=== PATIENT | male | born 1950 | race Caucasian/White ===

== ENCOUNTER 2021-12-16 14:35 | Outpatient (REF) | payer BC, SELFPAY ==
--- NOTE | ~2021-12-16 | CT_ITS ---
EXAMINATION: CT HEAD WITHOUT CONTRAST CLINICAL INFORMATION: Concussion with loss of consciousness COMPARISON: None TECHNIQUE: Contiguous axial imaging was performed from the skull base to vertex without intravenous administration of contrast. This CT examination was performed using dose optimization techniques as appropriate, variously including the following: *Automated exposure control *Adjustment of mA and/or kV according to patient size (this includes techniques or standardized protocols for targeted exams where dose is matched to indication/reason for exam; i.e. extremities or head) *Use of iterative reconstruction technique DLP: 775 mGy-cm FINDINGS: There is no evidence of acute intracranial hemorrhage or territorial infarction. No abnormal mass effect or midline shift is seen. Jalloh to white matter differentiation is well preserved. No extra-axial fluid collections are identified. The ventricles are normal in size. There is no abnormal attenuation within the brain parenchyma. The osseous structures and soft tissues are normal. The mastoid air cells and visualized portions of the paranasal sinuses are well aerated. CT/CT head/brain wo con IMPRESSION: Unremarkable exam.
== END 2021-12-16 14:36 | disposition home or self-care (01) ==
LOC: HO.CT 14:35
PROVIDERS: PCP Family Medicine; Visit Provider Psychiatry & Neurology Neurology
DX: S06.0X9A Concussion with loss of consciousness of unspecified duration, initial encounter (principal)
CPT/HCPCS: 70450

== ENCOUNTER 2025-01-14 09:53 | Outpatient (AMB) | payer BC, SELFPAY ==
--- OUTSIDE RECORDS SUMMARY | 2024-11-11 19:34 | XMS_ITS ---
Author Organization [facility] Address [facility] [place], [place] [id number] Care Team Providers Care Crusher Name Role Phone MARIAH OLGUIN Primary Care Provider [phone] REASON FOR VISIT RE:RE:Metoprolol Succinate short supply SOCIAL HISTORY Sex Assigned At : Social History Observation Description Sex Assigned At Male Encounters Encounter Location Date Provider Diagnosis [address] [address] 11/11/2024 MARIAH OLGUIN PLAN OF TREATMENT Next Appt Details Provider Name:NURSING NANETTE Wright, 06/24/2025 08:30:00 AM, [address] [place] [address], [phone], Provider Name:MARIAH REESE, 06/24/2025 09:00:00 AM, [address] [place] [address], [phone],
--- OUTSIDE RECORDS SUMMARY | 2024-11-12 04:40 | XMS_ITS ---
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 He is advised to call his systems software engineer immediately for follow-up. Continue present management. Follow-up [...] Assessment Notes Atherosclerotic heart diseas e of kaw coronary artery without angina pectoris Patient had some angina last week. He is advised to call his systems software engineer immediately for follow-up. Continue present management. Follow-up [...] Future Test Test Name Order Date AST (SGOT)-[id number] 05/12/2025 Vitamin [id number] 05/12/2025 ALT (SGPT)-[id number] 05/12/2025 Vitamin D, 02-Lbkllwr-401466 05/12/2025 Lipid Panel-428476 05/12/2025 BMP8+eGFR-036790 05/12/2025 Next Appt Details Follow Up: Follow-up in 6 mo nths already booked, Reason: Provider Name:MIGDALIA Wright, 06/24/2025 08:30:00 AM, [address] [place] [address], [phone], Provider Name:MARIAH REESE, 06/24/2025 09:00:00 AM, [address] [place] [address], [phone], Progress Notes * Examination Category Sub-Category Detail [...] he can self refer to orthopedics at [facility] but that if he wants to discuss this further he can book another visit.
--- OUTSIDE RECORDS SUMMARY | 2024-12-25 14:37 | XMS_ITS ---
Author Organization [facility] Address [facility] [place], [place] [address] Care Team Providers Care Physician Obstetrician Name Role Phone MARIAH OLGUIN Primary Care Provider [phone] REASON FOR VISIT MOLSTD Form SOCIAL HISTORY Sex Assigned At : Social History Observation Description Sex Assigned At Male Encounters Encounter Location Date Provider Diagnosis [address] [address] 12/25/2024 MARIAH OLGUIN PLAN OF TREATMENT Next Appt Details Provider Name:NURSING NANETTE Wright, 06/24/2025 08:30:00 AM, [address] [place] [address], [phone], Provider Name:MARIAH REESE, 06/24/2025 09:00:00 AM, [address] [place] [address], [phone],
--- OUTSIDE RECORDS SUMMARY | 2025-01-03 09:28 | XMS_ITS ---
Author Organization [facility] Address [facility] [place], [place] [address] Care Team Providers Care Wind Power Project Manager Name Role Phone MARIAH OLGUIN Primary Care Provider REASON FOR VISIT RE:MOLSTD Form SOCIAL HISTORY Sex Assigned At : Social History Observation Description Sex Assigned At Male Encounters Encounter Location Date Provider Diagnosis [address] [address] 01/03/2025 MARIAH OLGUIN PLAN OF TREATMENT Next Appt Details Provider Name:NURSING NANETTE Wright, 06/24/2025 08:30:00 AM, [address] [place] [address], [phone], Provider Name:MARIAH REESE, 06/24/2025 09:00:00 AM, [address] [place] [address], [phone],
--- OUTSIDE RECORDS SUMMARY | 2025-01-07 06:10 | XMS_ITS ---
Author Organization [facility] Address [facility] [place], [place] [address] Care Team Providers Care Land Management Forester Name Role Phone MARIAH OLGUIN Primary Care Provider REASON FOR VISIT RE:RE:MOLSTD Form SOCIAL HISTORY Sex Assigned At : Social History Observation Description Sex Assigned At Male Encounters Encounter Location Date Provider Diagnosis [address] [address] 01/07/2025 MARIAH OLGUIN PLAN OF TREATMENT Next Appt Details Provider Name:MIGDALIA Wright, 06/24/2025 08:30:00 AM, [address] [place] [address], [phone], Provider Name:MARIAH REESE, 06/24/2025 09:00:00 AM, [address] [place] [address], [phone],
--- NOTE | 2025-01-14 10:00 | A.OFFVIS_ITS ---
Intake Visit Reasons: 6m/ mci Accompanied by: Spouse Allergies No Known Allergies (No Known Allergies*) Allergy (Unverified 01/14/25 10:03) Medication List - Last Reconciled 01/14/25 by Pauline Morfin CNP memantine 10 mg PO BID 90 days metoprolol succinate ER 25 mg PO DAILY nitroglycerin 0.4 mg sublingual simvastatin 5 mg PO DAILY venlafaxine ER 37.5 mg PO DAILY vibegron (Gemtesa) 75 mg PO DAILY HPI Comments Details: He was doing okay. He was forgetful at times, misplacing things around the house, such as his glasses or phone, and it could take him some time to find them. He felt like he had trouble focusing and like his mind was always racing. He thought this may be related to memantine dose, but felt memory was worse when taking lower dose of medication. His noted that he often interrupted her when she was talking. Sleep was okay, getting 8+ hours/night. Mood was okay with venlafaxine. Headaches have been okay, worse in spring and fall with overcast weather. No falls. Was taking memantine 10mg once a day for period of time as medications got lost while traveling in [facility] and felt memory was worse without full dose, but did not notice much difference. Driving locally without any issues. He made some mistakes paying bills and was not responsible for paying as many as before. It takes him longer to do things. Mild forgetfulness, some word finding and name recall difficulties. Headaches usually occur with weather change and last 1-2 hours. Gets some headache daily for 15-20 minutes. They may be set off by riding on bumpy roads. Infrequency optical migraines with ripples 1/2 or full vision every 2 weeks or up to 2x/week. Before concussion, he had them every 2 months followed by a discomfort in the head for 4 hours. They started 20+ years ago. He has had some minor short-term memory problems before. Has been getting lot of headaches since then. 48 hours after the head trauma, he had CAT scan of the head and some other testing which were negative. He had occasional sharp needle and pins-like s ensation in soles of feet that come and go every few months and can happen 1- 2x/week for about 30-60 minutes. He also gets occasional tingling in his hands, but not consistently. Decreased flow in [facility] Medical History (Updated 01/14/25 @ 10:02 by Pauline Morfin CNP) MCI (mild cognitive impairment) Tension headache Migraine variant Paresthesia CAD (coronary artery disease) Review of Systems Const Denies chills, Denies daytime sleepiness, Denies difficulty sleeping, Denies fatigue, Denies fever(s), Denies frequent falls, Reports headache(s), Denies increased appetite, Denies poor appetite, Denies snoring, Denies weakness, Denies weight gain and Denies weight loss Eyes Denies loss of vision ENT Denies vertigo, Denies dizziness, Reports headache(s) and Denies neck pain Card Denies chest pain at rest, Denies chest pain with activity, Denies syncope, Denies leg edema, Denies palpitations, Denies dyspnea and Denies dyspnea on exertion Resp Denies cough, Denies dyspnea, Denies dyspnea on exertion and Denies snoring GI Denies abdominal pain, Denies constipation, Denies heartburn, Denies diarrhea and Denies nausea Reports urinary frequency, Denies urinary incontinence and Denies urinary urgency Musc Denies abnormal gait, Reports back pain, Denies myalgias, Denies arthralgias, Denies neck pain, Reports numbness and Reports tingling Neuro Denies abnormal gait, Denies vertigo, Denies dizziness, Denies syncope, Denies frequent falls, Reports headache(s), Denies lack of coordination, Denies loss of vision, Reports memory loss, Reports numbness, Denies Other visual disturbances, Denies restless legs, Denies seizure-like activity, Reports tingling, Denies paresthesias, Denies tremor(s) and Denies weakness Psych Reports anxiety, Denies depression, Denies auditory hallucinations, Reports memory loss and Denies visual hallucinations Endo Denies fatigue and Denies palpitations Physical Exam Const Other: General Appearance:? normal, in no acute distress. Heart:? S1, S2 normal, no murmurs. Lungs:? clear anteriorly and posteriorly. Musculoskeletal:? normal. Extremities:? no edema. Psych:? alert, as below. Neuro Other: Abnormal Neurological Findings:?MMSE 30/30. Mental Status: alert and oriented X 3. Normal attention, orientation, memory, and affect. Cranial Nerves: Pupils are equal, round, and reactive to light. External ocular muscles are intact. Visual roy are full, no ptosis. Face is symmetrical, no facial weakness or droop. Facial sensations are normal. Tongue protrudes in midline. Palate elevates symmetrically. Shoulder shrugging is normal Motor Examination: Normal muscle tone, bulk and strength. No atrophy or fasciculations. No drift of the extended upper extremities. DTR 2+. Plantars are flexor. Sensory Exam: Normal light touch, temperature, pinprick, vibration, and joint- position sensations. Rhomberg sign is absent. Coordination: No ataxia. No titubation. Gait Exam: Within normal limits. Cerebellar Signs: Ruqkae-oc-oruf is okay. Extrapyramidal System: No tremor, rigidity with normal facial expressions. No bradykinesia. No bradyphrenia. Normal arm swing and posture. No propulsion or retropulsion. Speech: Normal. MMSE Level of Consciousness: Alert. Orientation: Knows correct year, month, date, day and season. Knows correct city, county and state. Knows correct location and floor. Registration: Able to register 3 objects. Attention: Serial 7's performed accurately to 65. Recall: Able to recall 3 out of 3 objects. Language: Normal spontaneous speech, fluency, repetition, naming, comprehension, reading, and writing. Total Score: 30/30. Results Reviewed Results Reviewed: 09/18/21 NCV/ EMG at [facility] showed normal NCV . EMG showed mild chronic radiculopathy L2-4 muscles 10/27/21 EEG- WNL 12/16/21 CT brain normal. Assessment & Plan Assessment & Plan (1) MCI (mild cognitive impairment): Code(s): G31.84 - Mild cognitive impairment of uncertain or unknown etiology Category: Medical Plan: He was here with his . He reported difficulty focusing and feeling like his mind was racing, which he thought may be related to memantine dose of 20mg/day, however he felt memory declined when he reduced dose to 10mg/day earlier this year. * May try memantine 10mg 1 tablet in the morning and 1/2 tablet in the evening (for total of 15mg/day) He was asking if there were new/other treatment options available. He tried donepezil in the past with side effects. He was educated on new IV anti-amyloid treatment (Kisunla) for early, symptomatic AD, which he was interested in. He was advised of additional testing that would be required to determine if he would be appropriate candidate for this treatment, and he was agreeable. * Cognitive testing (MMSE, MoCA) * Labs ordered (TSH, vitamin B12 and folate) * MRI brain ordered * PET brain beta amyloid ordered (2) Migraine variant: Code(s): G43.809 - Other migraine, not intractable, without status migrainosus Category: Medical (3) Tension headache: Code(s): G44.209 - Tension-type headache, unspecified, not intractable Category: Medical Plan Meds tried: donepezil (side effects) Orders: Orders Vitamin B12 and Folate Today G31.84 - Mild cognitive impairment of uncertain or unknown etiology PET Brain beta amyloid Today G31.84 - Mild cognitive impairment of uncertain or unknown etiology MR head/brain wo con Today G31.84 - Mild cognitive impairment of uncertain or unknown etiology TSH reflex Free T4 Today G31.84 - Mild cognitive impairment of uncertain or unknown etiology Coding Level of Care Code Est Pt Level 4 (95955) Diagnoses MCI (mild cognitive impairment) G31.84 Migraine variant G43.809 Tension headache G44.209
--- OUTSIDE RECORDS SUMMARY | 2025-01-14 11:55 | XMS_ITS | Clinical Summary ---
Author Organization [facility] Address [address] [place] [address] Phone Care Team Providers Care Migration Specialist Name Role Phone Julia Levin MD Primary Care Provider [phone] Social History Tobacco Use Types Packs/Day Years Used Date Smoking Tobacco: Never Assessed Education Answer Date Recorded Are you interested in more education? Not on heron e 09/01/2022 Are you concerned about learning? Not on file 09/01/2022 No 09/01/2022 No 09/01/2022 Digital Access Answer Date Recorded No 10/03/2022 No 10/03/2022 Reliable internet access at home? Not on file 10/03/2022 Device with a working camera? Not on file Sex and Gender Information Value Date Recorded Sex Assigned at Not on file Legal Sex Male 9:39 AM EST Gender Identity Not on file Sexual Orientation Not on file Plan of Treatment Not on file Medical Devices Not on file Insurance [employer] PPO BLUE REPLACEMENT [facility] MEDICARE PPO BLUE [place] [address] [place] [address] MEDICARE PPO BLUE REPLACEMENT Care Teams Migration Specialist Relationship Specialty Start Date End Date Julia Levin MD [address] [place] [id number] PCP - General Family Medicine 03/25/20 Additional Source Comments The information contained in this document represents components of the legal health record. It is not the complete legal health record.[facility]
--- OUTSIDE RECORDS SUMMARY | 2025-01-14 11:55 | XMS_ITS | Clinical Summary ---
Author Organization [facility] [employer] [facility] Address [address] [place] [address] Care Team Providers Care Hand Suture Winder Name Role Phone Unavailable Primary Care Provider Unavailabl e Allergies No known active allergies Medications metoprolol (TOPROL-XL) 25 MG 24 hr tablet TAKE 1 TABLET BY MOUTH EVERY DAY 11/13/2020 Active oxybutynin (DITROPAN-XL) 10 MG 24 hr tablet TAKE 1 TABLET BY MOUTH EVERY DAY 10/19/2020 Active simvastatin (ZOCOR) 5 MG tablet TAKE 1 TABLET BY MOUTH EVERY DAY 09/14/2020 Active Active Problems No known active problems Social History Tobacco Use Types Packs/Day Years Used Date Smoking Tobacco: Never Smokeless Tobacco: Never Alcohol Use Standard Drinks/Week Comments Yes 0 (1 standard drink = 0.6 oz pur e alcohol) Sex and Gender Information Value Date Recorded Sex Assigned at Not on file Legal Sex Male 12:37 PM EDT Gender Identity Not on file Sexual Orientation Not on file Last Filed Vital Signs Vital Sign Reading Time Taken Comments Blood Pressure - - Pulse 82 12/01/2020 1:12 PM EDT Temperature 36.8 C (98.2 F) 12/01/2020 1:12 PM EDT Respiratory Rate - - Oxygen Saturation 98% 12/01/2020 1:12 PM EDT Inhaled Oxygen Concentration - - Weight - - Height - - Body Mass Index - - Plan of Treatment Health Maintenance Due Date Last Done Comments Colorectal Cancer: COLONOSCO PY Screening every 10 yrs (or Modifier) 1949 Depression: Screening Annual ly using PHQ-2/9 in Adults 18 yrs or above (or HM Modifier)([facility]) 10/21/1967 Hepatitis C Virus Infection in Adolescents and Adults: Screening (or Modifier) ([facility]) 10/21/1967 SDOH Screening Reminder: Jessica lyles for all adults ([facility]) 10/21/1967 Tobacco Smoking Cessation: i n Adults excluding Women: Behavioral and Pharmacotherapy Interventions ([facility]) 10/21/1967 DTaP/Tdap/Td Vaccines ([facility]) (1 - Tdap) 1968 Colorectal Cancer Screening 45 -75 Yrs (or HM Modifier ) 1994 Colorectal Cancer: FLEXIBLE SIGMOIDOSCOPY Screening every 5 yrs 1994 Colorectal Cancer: Fecal Imm unochemical Test (FIT) Annually [facility] 1994 Colorectal Cancer: High-sens itivity gFOBT Screening Annually [facility] 1994 Colorectal Cancer: Stool Col oguard Screening every 3 yrs 1994 Colorectal Cancer:CT Colonography Screening every 5 yr s 1994 Pneumococcal Vaccination Scr eening: Patients 50+ yrs of age ([facility]) (1 of 1 - PCV) 10/21/1999 Zoster/Shingles Vaccine Seri es Screening: Adults aged 18+ yrs (or HM Modifiers)([facility]) (1 of 2) 10/21/1999 COVID-19 Vaccine Screening: Initial Series and Booster Status ([facility]) ( - 2023-25 season) 2024 RSV Vaccines (1 - 1-dose 75+ series) 2024 Flu Vaccination: Ages 65+: Y early High Dose Recommended (or Modifier)([facility]) 12/05/2024 Medical Devices Not on file [place] [address] [place] [address] MEDICARE Member Subscriber Plan / Payer (Ef fective 2020-Present) Name:Justin Thakkar Relation to Subscriber:Self Name:Justin Thakkar Payer ID:Not on file Group ID:[facility] [address] [id number] Type:Not on file Address: [facility] [id number] [place] [address]
--- OUTSIDE RECORDS SUMMARY | 2025-01-14 11:55 | XMS_ITS | Patient Health Record ---
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 Name Role Phone MARIAH OLGUIN Primary Care Provider ALLERGIES No Known Allergies RESULTS Component Value Reference Range Notes BMP8+eGFR-[id number] Reviewed date:05/16/2024 12:03:45 PM Interpretation: Performing Lab:[facility], [facility], Phone - [phone], Director - Emily Notes/Report: Glucose 66 70-99 mg/dL BUN 17 8-27 mg/dL Creatinine 0.88 0.76-1.27 mg/dL eGFR 90 >59 mL/min/1.73 BUN/Creatinine Ratio 19 10-24 Sodium 140 134-144 mmol/L Potassium 5.0 3.5-5.2 mmol/L Chloride 101 96-106 mmol/L Carbon Dioxide, Total 25 20-29 mmol/L Anion Gap 14.0 10.0-18.0 mmol/L Calcium 9.5 8.6-10.2 mg/dL LDL Cholesterol (Direct)-120 295 Reviewed date:05/16/2024 12:12:47 PM Interpretation: Performing Lab:[facility], [facility], Phone - [phone], Director - Emily Notes/Report: LDL Chol. (Direct) 79 0-99 mg/dL LDL Direct Comment: AST (SGOT)-[id number] Reviewed date:05/16/2024 12:03:27 PM Interpretation: Performing Lab:[facility]assandra, [facility], Phone - [phone], Director - [facility] Notes/Report: AST (SGOT) 30 0-40 IU/L ALT (SGPT)-[id number] Reviewed date:05/16/2024 12:03:16 PM Interpretation: Performing Lab:[facility], [address] [place] [address], Phone - [phone], [facility] Notes/Report: ALT (SGPT) 22 0-44 IU/L Tick-borne Disease Ab Profil e-[id number] Reviewed date:10/11/2024 10:57:03 PM Interpretation: Performing Lab:[facility], [address] [place] [address], Phone - [phone], Director - [facility] Notes/Report: and Drug Administration. by [email or web address]. It has not been cleared or approved by the Food was developed and its performance characteristics determined Test(s) 341730-Qhqmiqo microti IgG Lyme Total Antibody ELTON Negative Negative Lyme antibodies not detected. Reflex testing is not indicated. No laboratory evidence of infection with B. burgdorferi (Lyme disease). Negative results may occur in patients recently infected (less than or equal to 14 days) with B. burgdorferi. If recent infection is suspected, repeat testing on a new sample collected in 7 to 14 days is recommended. Babesia microti IgG <1:10 Neg:<1:10 E. chaffeensis IgG Negative Neg:<1:64 A. phagocytophilum IgG Negative Neg:<1:64 Result Comments: Antibody titers may be negative in the first 7-10 days of illness. A four-fold rise in IgG antibody titers for Babesia microti, Anaplasma phagocytophilum, and/or Ehrlichia chaffeensis in paired samples (acute and convalescent) supports the diagnosis of babesiosis, anaplasmosis, and/or ehrlichiosis, respectively. Lipid Panel-[id number] Reviewed date:05/16/2024 12:04:17 PM Interpretation: Performing Lab:[facility], [address] [place] [address], Phone - [phone], [facility] Notes/Report: Cholesterol, Total 165 100-199 mg/dL Triglycerides 328 0-149 mg/dL HDL Cholesterol 54 >39 mg/dL VLDL Cholesterol Rick 51 5-40 mg/dL LDL Chol Calc ([facility]) 60 0-99 mg/dL LDL Calc Comment: Vitamin D, 85-Cimqklx-[id number] Reviewed date:05/16/2024 12:04:38 PM Interpretation: Performing Lab:[facility]andra, [address], [place], Phone - [phone], Director - Emily Notes/Report: Vitamin D, 25-Hydroxy 31.8 30.0-100.0 ng/mL Vitamin D deficiency has been defined by the [place] of Medicine and an Endocrine Society practice guideline as a level of serum 25-OH vitamin D less than 20 ng/mL (1,2). The Endocrine Society went on to further define vitamin D insufficiency as a level between 21 and 29 ng/mL (2). 1. IOM ([place] of Medicine). 2010. Dietary reference intakes for calcium and D. [place]: The National Academies Press. 2. Mauro MF, Daniel KATZ, Tanmay BOYKIN, et al. Evaluation, treatment, and prevention of vitamin D deficiency: an Endocrine Society clinical practice guideline. JCEM. 2010; 96(7):1911-30. REASON FOR REFERRAL No Information MEDICATIONS Medication SIG (Take, Route, Frequency, Duration) Notes Start Date End Date Status Multivitamin - 1 tab(s) orally once a day Active Venlafaxine HCl ER 37.5 MG TAKE 1 CAPSUL E BY MOUTH DAILY for 90 Active Aspirin 81 81 MG 1 tablet Orally Once a day for 30 day(s) Active Nitroglycerin 0.4 MG as directed Sublingual Active Advil 200 MG 1 tablet with food o r milk as needed Orally Three times a day Active Metoprolol Succinate ER 25 MG TAKE 1 TABLET BY MOUTH EVERY DAY for 5 days Active Simvastatin 5 MG 1 tab(s) orally once a day (at bedtime) Active B-12 1000 MCG 1 tab(s) orally once a day Active Fish Oil 1000 MG 1 capsule Orally ana ry other day occ Active Memantine HCl 10 MG 1 tab Orally Twice a day Active Vitamin E 200 UNIT 1 cap(s) orally once a day Active IMMUNIZATIONS Vaccine Route Administration Date Status Comme nts FLU- FLUVIRIN, PRE-FILLED SYRINGE 0.5 ml Unknown 01/23/2013 Administered FLU- FLUVIRIN, PRE-FILLED SYRINGE 0.5 ml Unknown 01/07/2014 Administered Influenza IM Intramuscular 03/11/2009 Administered Influenza IM Intramuscular 04/21/2010 Administered Influenza Unknown 01/05/2011 Administered Influenza Unknown 02/06/2012 Administered Influenza Unknown 01/05/2015 Administered Influenza Vaccine[158] Unknown 02/18/2019 Administered Influenza, Fluzone HD 65+ Unknown 01/30/2017 Administer ed Influenza, Fluzone HD 65+ IM Intramuscular 02/04/2018 Admi nistered Influenza, Fluzone HD 65+ IM Intramuscular 01/24/2020 Admi nistered Influenza, Fluzone HD 65+ IM Intramuscular 12/31/2020 Admi nistered Influenza, Fluzone HD 65+ IM Intramuscular 02/09/2022 Admi nistered Influenza, Fluzone HD 65+ IM Intramuscular 01/19/2023 Admi nistered Influenza, Fluzone HD 65+ IM Intramuscular 02/19/2024 Admi nistered Moderna Bivalent Unknown 02/08/2022 Administered Moderna COVID-19 mRNA LNP-S PF Unknown 08/08/2021 Administered Moderna COVID-19 mRNA LNP-S PF IM Intramuscular 02/09/2023 Administered Moderna COVID-19 mRNA LNP-S PF IM Intramuscular 02/19/2024 Administered Pfizer COVID-19,mRNA, LNP-S, PF, 30mcg/0.3mL dose Unknown 07/20/2020 Administered Pfizer COVID-19,mRNA, LNP-S, PF, 30mcg/0.3mL dose Unknown 08/11/2020 Administered Pfizer COVID-19,mRNA, LNP-S, PF, 30mcg/0.3mL dose IM Intramuscular 02/21/2021 Administered Pneumococcal (PPV23, adult) IM Intramuscular 04/05/2012 Administered Pneumococcal, PPV 23 IM Intramuscular 12/18/2017 Administe red Pneumococcal,Prevnar 13, PEDS STATE SUPPLIED Unknown 01/04/2015 Administered ZejyepXFS62 IM Intramuscular 05/10/2023 Administered RSV,recombinant,protein subunit,RSVpreF, adjuvant IM Intramuscular 01/19/2023 Administered SHINGRIX HZV VACCINE Unknown 12/18/2017 Administered SHINGRIX HZV VACCINE Unknown 12/28/2018 Administered Tdap (Adacel) Unknown 04/14/2008 Pending Tdap (Adacel) Unknown 12/18/2017 Administered Tdap (Adacel)11-64,State Supplied Unknown 04/14/2008 Administered Zostavax (Shingles) SC Subcutaneous 06/19/2012 Administere d Influenza, Fluzone, High-Dose, 65+ Unknown 01/25/2016 Administered PREVNAR 13, STATE SUPPLIED Unknown 01/05/2015 Administe red SOCIAL HISTORY Tobacco Use: Social History Observation [...] 4 Interpretation Positive Section Notes: never smoked never smoked never smoked never smoked never smoked never smoked never smoked Working 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 never smoked never smoked never smoked never smoked never smoked never smoked never smoked never smoked never smoked Working 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 never smoked never smoked never smoked Working 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 never smoked never smoked never smoked never smoked never smoked never smoked Working 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) Active confirmed Atheroscle rotic heart disease of [place] coronary artery without angina pectoris (296781052190767 ) Problem Functional dyspepsia (K30) Active confirmed Functional dyspepsia (6997916) Problem Macrocytosis (D75.89) Active confirmed 983498082 Problem Family history of GI malignancy (Z80.0) Active confirmed 096689902 Problem Low vitamin D level (E55.9) Active confirmed Vitamin D deficiency (95216646) Problem Postconcussive syndrome (F07.81) Active confirmed 74114454 Problem Enlarged prostate wi th lower urinary tract symptoms (LUTS) (N40.1) Active confirmed 271166276 Problem Memory problem (R41.3) Active confirmed 648602900 Problem Pure hypercholesterolemia (E78.00) Active confirmed 422720097 Problem Hearing loss, unspecified hearing loss type, unspecified laterality (H91.90) Active confirmed 55770359 Problem Hearing loss of left ear, unspecified hearing loss type (H91.92) Active confirmed 292232486 VITAL SIGNS Blood pressure diastolic 62 mm Hg 11/12/2024 Height 70 in 11/12/2024 Blood pressure systolic 124 mm Hg 11/12/2024 Weight 162 lbs 11/12/2024 BMI 23.24 kg/m2 11/12/2024 Encounters Encounter Location Date Provider Diagnosis [address] [address] 03/18/2024 MARIAH [place] [id number] 03/20/2024 MARIAH OLGUIN [place] [id number] 04/22/2024 MARIAH OLGUIN [place] [id number] 04/22/2024 MARIAH OLGUIN [place] [id number] 04/23/2024 MARIAH [place] [id number] 04/23/2024 [place] [id number] 04/24/2024 MARIAH OLGUIN [place] [id number] 05/13/2024 MARIAH OLGUIN [address] [address] 05/15/2024 MARIAH OLGUIN Medicare annual well ness visit, subsequent Z00.[address] [address] 05/15/2024 MARIAH OLGUIN Major depressive dis order, single episode, unspecified F32.9 ; Pure hypercholesterolemia E78.00 ; Postconcussive syndrome F07.81 and Impacted cerumen, left ear H61.[address] [address] 09/30/2024 MARIAH OLGUIN Insect bite (nonveno mous) of abdominal wall, initial encounter S30.861A and Bitten or stung by nonvenomous insect and other nonvenomous arthropods, initial encounter W57.XXXA [place] [address] 10/02/[address] 11/05/2024 [place] [address] 11/05/2024 [place] [address] 11/06/2024 [place] [address] 11/11/2024 [place] [address] 11/12/2024 [facility] Atherosclerotic hear t disease of [place] coronary artery without angina pectoris I25.10 ; Major depressive disorder, single episode, unspecified F32.9 ; Pure hypercholesterolemia E78.00 ; Postconcussive syndrome F07.81 ; Low vitamin D level E55.9 and Medication management Z79.899 [place] [address] 12/25/2024 [place] [address] 01/03/2025 [place] [address] 01/07/2025 [facility] ASSESSMENTS Encounter Date Diagnosis Assessment Notes Treatment Notes Treatment Clinical Notes Section Notes 09/30/2024 Insect bite (nonvenomous) of abdominal wall, initial encounter (ICD-10 - S30.861A) 11/12/2024 Atherosclerotic hear t disease of [place] coronary artery without angina pectoris (ICD-10 - I25.10) Patient had some angina last week. 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 Continue present management. Follow-up with cardiology and with us in 6 months. 11/12/2024 Major depressive disorder, single episode, unspecified (ICD-10 - F32.9) Clinically stable and not suicidal. Continue present management. Follow-up in 6 months. 05/15/2024 Medicare annual wellness visit, subsequent (ICD-10 - Z00.00) 05/15/2024 Pure hypercholesterolemia (ICD-10 - E78.00) Patient will have his blood work drawn on the way out. We will follow-up on the results and modify management if required. Next follow-up 1 year. 05/15/2024 Major depressive disorder, single episode, unspecified (ICD-10 - F32.9) Controlled. Continue present management. Follow-up in 6 months. 09/30/2024 Bitten or stung by nonvenomous insect and other nonvenomous arthropods, initial encounter (ICD-10 - W57.XXXA) 11/12/2024 Pure hypercholesterolemia (ICD-10 - E78.00) Previously controlled. Continue present management pending blood work in 6 months. 05/15/2024 Postconcussive syndr ome (ICD-10 - F07.81) Patient has continued fatigue and short-term memory problems. Patient is advised to follow-up with his neurologist about this. He requests neuro psych testing for his memory problems and is given the names of Dr. Awan and Dr. Carlitos Meneses with phone numbers to call and see if they take his insurance if so he can book himself an appointment otherwise he should speak to Dr. Foley about having him do the testing. 11/12/2024 Postconcussive syndr ome (ICD-10 - F07.81) Frontal headaches. Likely part of postconcussive syndrome followed by neurology. Also advised to try treatment for his allergies and continue to wear sunglasses on hasty days to avoid eyestrain. Patient to follow-up with neurology if not improving. 05/15/2024 Impacted cerumen, le ft ear (ICD-10 - H61.22) Patient advised to do wax softening drops for 10 minutes for 3 or 4 days before trying to irrigate his ear again. If this does not allow him to remove the wax he should continue to do the wax softening drops daily and make an appointment in nursing to have his ear flushed. 11/12/2024 Low vitamin D level (ICD-10 - E55.9) 11/12/2024 Medication managemen t (ICD-10 - Z79.899) 05/15/2024 Other Well male adult physical. Up to date on aprropriate screenings. Follow up in 1 year for next physical. Colonoscopy booked October 15. PLAN OF TREATMENT Pending Test Test Name Order Date AST ( SGOT) 04/05/2021 ALT(DO NOT USE) 04/05/2021 ALT (SGPT) 05/04/2022 Future Test Test Name Order Date Lyme ,EIA w/i Ref IgG, IgM(Quest/BRL) Bone density (Three site Dexa) 0 XR : SPINE CERVICAL min 4 views -SMA 03/2020 AST (SGOT)-[id number] 05/12/2025 Vitamin V84-119127 05/12/2025 ALT (SGPT)-894750 05/12/2025 Vitamin D, 46-Iygiove-257465 05/12/2025 Lipid Panel-823409 05/12/2025 BMP8+eGFR-[id number] 05/12/2025 Next Appt Details Provider Name:MIGDALIA Wright, 06/24/2025 08:30:00 AM, [address] [place] [address], [phone], Provider Name:MARIAH REESE, 06/24/2025 09:00:00 AM, [address] [place] [address], [phone], Insurance Providers Payer Name Payer Address Payer Phone Subscriber Number Group Number Insured Name Patient Relationship to Insured Coverage Start Date Coverage End Date [employer]IC[employer] [address] [place] [address] [phone] [id number] RONY DE PAZ Self - patient is the insured 5 [employer] [facility] [address] [place] [address] [phone] [id number] RONY DE PAZ Self - patient is the insured MEDICAL (GENERAL) HISTORY Medical History History ICD Code Anemia-Hgb12.7,MCV86,%ironsa t18-05/14-Iron def///Father colon polyps/Cancer--,PA----pnuevktg62(05/14)//TTG nl 07/12/Hgb3/nl////EGD4/25/12 SBBX nl(SIBx-nl,,COlon 08/26/07-mod sigm tics-Iron def anemia unclear etiology- REc path=Nl Duod, RTo4 mo c Hgb 1 week before,IRon,VitC colon 2012 with diverticulosis//Colon04/23/18-TIcs right and left-Rec fiber,Myqmc6pnmJknz R shoulder tendonitis Elevated ALT/AST depression/anxiety dyspepsia -resolved when stopped fish oi l Arthritis Hypoglycemia Palpitations FH colon cancer in father- in 80's Pt has been under moderate stress recent ly CAD, s/p CABG x2- 03/2012 Dr. Daley-Derm, Dr. Brooks-Cardio, Dr. Henderson olrimma-Eye Chronic anemia inguinal hernia (see surgical hx) covid HCP- Adriana Chawla () Surgical History Surgery Date(Month/Year) Cardiac Cath 03/14/2012 inguinal hernia repair 12/19/19 wisdom teeth removal as a teen cataract surgery 02/18/2018 Double Coronary Bypass 03/15/2012 Hospitalization History Reason Date(Month/Year) [facility] ED- concussion 06/09/21 [facility] Dx; abnormal stress test double john nary bypass 03/14/2012 - 03/21/2012
--- OUTSIDE RECORDS SUMMARY | 2025-01-14 11:55 | XMS_ITS ---
Author Name [facility] Organization Unknown Encounters Encounter Type Encounter Reason Primary Diagnosis Location Date Ambulatory [facility] 01/04/20 23 Ambulatory [facility] 12/28/19 23 Ambulatory [facility] 12/21/19 23 Ambulatory [facility] 12/19/19 23 Ambulatory [facility] 12/14/19 23 Ambulatory [facility] 12/12/19 Care Team Organization Name Specialty Phone Email Start Date End Da [facility] 06/06/2023 [facility] 12/11/2022 11/18/2024 [facility] 10/06/2022 [facility] Primary Care
--- OUTSIDE RECORDS SUMMARY | 2025-01-14 11:55 | XMS_ITS | Clinical Summary ---
Author Organization [facility] Address [address] [place] [address] Care Team Providers Care Arts Manager Name Role Phone Unavailable Primary Care Provider Unavailabl e Social History Tobacco Use Types Packs/Day Years Used Date Smoking Tobacco: Never Assessed Sex and Gender Information Value Date Recorded Sex Assigned at Not on file Gender Identity Not on file Sexual Orientation Not on file Job Start Date Occupation Industry Not on file Not on file Not on file Plan of Treatment Health Maintenance Due Date Last Done Comments Hepatitis C Screening 1949 Depression Screening 1961 Preventative Health Evaluation 10/21/1967 DTap / Tdap / Td (1 - Tdap) 1968 Colon Cancer Screening (Colonoscopy) 1994 Shingrix-Zoster Vaccine (1 o f 2) 10/21/1999 Fall Risk Assessment 2014 Pneumococcal Vaccine (1 of 1 - PCV) 2014 RSV Adult > 60+ Yrs or (1 - 1-dose 75+ series) 2024 COVID-19 Vaccine (2 - 2024-2 6 season) 2025 02/21/2021 Influenza Vaccine (#1) 2025 2, 12/31/2020, 01/24/2020 Hepatitis B Vaccines Aged Out No long er eligible based on patient's age to complete this topic RSV Ped < 20 months Aged Out No longe r eligible based on patient's age to complete this topic DR RODRIGUEZ, KAREL [phone]
== END 2025-01-14 10:44 | disposition home or self-care (01) ==
LOC: HO.HSM 09:54
PROVIDERS: PCP Family Medicine; Referring Provider Family Medicine; Visit Provider Registered Nurse
DX: G31.84 Mild cognitive impairment of uncertain or unknown etiology (principal); G43.809 Other migraine, not intractable, without status migrainosus; G44.209 Tension-type headache, unspecified, not intractable
CPT/HCPCS: 99214

== ENCOUNTER 2025-01-20 08:29 | Outpatient (REF) | payer MEDICARE, SELFPAY ==
--- OUTSIDE RECORDS SUMMARY | 2024-11-11 19:34 | XMS_ITS ---
Author Organization [facility] Address [facility] [place], [place] [id number] Care Team Providers Care Rv Detailer Name Role Phone MARIAH OLGUIN Primary Care Provider REASON FOR VISIT RE:RE:Metoprolol Succinate short supply SOCIAL HISTORY Sex Assigned At : Social History Observation Description Sex Assigned At Male Encounters Encounter Location Date Provider Diagnosis [address] [address] 11/11/2024 MARIAH OLGUIN PLAN OF TREATMENT Next Appt Details Provider Name:NURSING NANETTE Wright, 06/24/2025 08:30:00 AM, [address] [place] [address], [phone], Provider Name:MARIAH RESEE, 06/24/2025 09:00:00 AM, [address] [place] [address], [phone],
--- OUTSIDE RECORDS SUMMARY | 2024-11-12 04:40 | XMS_ITS ---
Author Organization [facility] Address [facility] [place], [place] [address] Care Team Providers Care College Scouting Coordinator Name Role Phone MARIAH OLGUIN Primary Care Provider [phone] REASON FOR VISIT 6 month f/u MEDICATIONS Medication SIG (Take, Route, Frequency, Duration) Notes Start Date End Date Status Venlafaxine HCl ER 37.5 MG TAKE 1 CAPSUL E BY MOUTH DAILY for 90 Active Multivitamin - 1 tab(s) orally once a day Active Simvastatin 5 MG 1 tab(s) orally once a day (at bedtime) Active B-12 1000 MCG 1 tab(s) orally once a day Active Vitamin E 200 UNIT 1 cap(s) orally once a day Active Aspirin 81 81 MG 1 tablet Orally Once a day for 30 day(s) Active Nitroglycerin 0.4 MG as directed Sublingual Active Fish Oil 1000 MG 1 capsule Orally ana ry other day occ Active Memantine HCl 10 MG 1 tab Orally Twice a day Active Advil 200 MG 1 tablet with food o r milk as needed Orally Three times a day Active Metoprolol Succinate ER 25 MG TAKE 1 TABLET BY MOUTH EVERY DAY for 5 days Active SOCIAL HISTORY Tobacco Use: Social History Observation Description Date Details (start date - stop date) Never Smoker NA - NA Sex Assigned At : Social History Observation Description Sex Assigned At Male Smoking Question Answer Notes Are you a: never smoker Alcohol Screen Question Answer Notes Did you have a drink contain ing alcohol in the past year? Yes How often did you have a dri nk containing alcohol in the past year? 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 He is advised to call his house wirer helper immediately for follow-up. Continue present management. Follow-up with cardiology and with us in 6 months. 11/12/2024 Major depressive disorder, single episode, unspecified (ICD-10 - F32.9) Clinically stable and not suicidal. Continue present management. Follow-up in 6 months. 11/12/2024 Pure hypercholesterolemia (ICD-10 - E78.00) Previously controlled. Continue present management pending blood work in 6 months. 11/12/2024 Postconcussive syndr ome (ICD-10 - F07.81) Frontal headaches. Likely part of postconcussive syndrome followed by neurology. Also advised to try treatment for his allergies and continue to wear sunglasses on hasty days to avoid eyestrain. Patient to follow-up with neurology if not improving. 11/12/2024 Low vitamin D level (ICD-10 - E55.9) 11/12/2024 Medication managemen t (ICD-10 - Z79.899) PLAN OF TREATMENT Treatment Notes Assessment Notes Atherosclerotic heart diseas e of [place] coronary artery without angina pectoris Patient had some angina last week. He is advised to call his house wirer helper immediately for follow-up. Continue present management. Follow-up with cardiology and with us in 6 months. Major depressive disorder, s walter episode, unspecified Clinically stable and not suicidal. Continue present management. Follow-up in 6 months. Pure hypercholesterolemia Previously con trolled. Continue present management pending blood work in 6 months. Postconcussive syndrome Frontal headache s. Likely part of postconcussive syndrome followed by neurology. Also advised to try treatment for his allergies and continue to wear sunglasses on hasty days to avoid eyestrain. Patient to follow-up with neurology if not improving. Future Test Test Name Order Date AST (SGOT)-[id number] 05/12/2025 Vitamin [id number] 05/12/2025 ALT (SGPT)-[id number] 05/12/2025 Vitamin D, 50-Uqrsole-899166 05/12/2025 Lipid Panel-801340 05/12/2025 BMP8+eGFR-729488 05/12/2025 Next Appt Details Follow Up: Follow-up in 6 mo nths already booked, Reason: Provider Name:MIGDALIA Wrgiht, 06/24/2025 08:30:00 AM, [address] [place] [address], [phone], Provider Name:MARIAH REESE, 06/24/2025 09:00:00 AM, [address] [place] [address], [phone], Progress Notes * Examination Category Sub-Category Detail Notes Category Not es General Examination Heart: RSR, normal S1S2 Lungs: clear to auscultatio n General Appearance no apparent distress , pleasant Neuro alert and oriented x 3, gait normal History and Physical Notes * HPI (History of Present Illness) Category Sub-Category Detail Notes Category Not es General Patient presents in follow-up. Dr Foley has retired Pt is seeing a APC at his practice instead.Doing well on memantine with no side effects. Patient was having some problematic headaches he saw his neurologist about it and he advised him to see his eye doctor but also said that he would likely have headaches from the concussion for the rest of his life. Pt had his glasses updated and this helped a bit. Pt also gets more head aches when there is white overcast. wears sun glasses when this is happening and has less problems. persistent cough is improved when takes allergy med consitently Had some central chest pain last week when doing heavy lifting in the heat. no SOB or nausea, but was fatigued. went away with rest. sees Dr Brooks and is advised to speak to him about it. Patient has had previous similar and Dr. Brooks did not necessarily do anything about it. Patient would also like to do a DNR. We do not have the time to discuss it at this visit but patient is given the MOLST form instead and advised to fill this out indicating that he does not want CPR but to look at the other items enumerated and see how he feels about those. He can book another appointment to discuss this. Patient also has issues with some joint aches that he brings out as an exit comment. Patient is advised that he can self refer to orthopedics at [facility] but that if he wants to discuss this further he can book another visit.
--- OUTSIDE RECORDS SUMMARY | 2024-12-25 14:37 | XMS_ITS ---
Author Organization [facility] Address [facility] [place], [place] [id number] Care Team Providers Care Perforator Typist Name Role Phone MARIAH OLGUIN Primary Care Provider [phone] REASON FOR VISIT MOLSTD Form SOCIAL HISTORY Sex Assigned At : Social History Observation Description Sex Assigned At Male Encounters Encounter Location Date Provider Diagnosis [address] [address] 12/25/2024 MARIAH OLGUIN PLAN OF TREATMENT Next Appt Details Provider Name:NURSING NANETTE Wright, 06/24/2025 08:30:00 AM, [address] [place] [address], [phone], Provider Name:MARIAH REESE, 06/24/2025 09:00:00 AM, [address] [place] [address], [phone],
--- OUTSIDE RECORDS SUMMARY | 2025-01-03 09:28 | XMS_ITS ---
Author Organization [facility] Address [facility] [place], [place] [address] Care Team Providers Care Information Operator Name Role Phone MARIAH OLGUIN Primary Care Provider [phone] REASON FOR VISIT RE:MOLSTD Form SOCIAL HISTORY Sex Assigned At : Social History Observation Description Sex Assigned At Male Encounters Encounter Location Date Provider Diagnosis [address] [address] 01/03/2025 MARIAH OLGUIN PLAN OF TREATMENT Next Appt Details Provider Name:NURSING NANETTE Wright, 06/24/2025 08:30:00 AM, [address] [place] [address], [phone], Provider Name:MARIAH REESE, 06/24/2025 09:00:00 AM, [address] [place] [address], [phone],
--- OUTSIDE RECORDS SUMMARY | 2025-01-07 06:10 | XMS_ITS ---
Author Organization [facility] Address [facility]0 [place], [place] [address] Care Team Providers Care Horse Stud Worker Name Role Phone MARIAH OLGUIN Primary Care Provider [phone] REASON FOR VISIT RE:RE:MOLSTD Form SOCIAL HISTORY Sex Assigned At : Social History Observation Description Sex Assigned At Male Encounters Encounter Location Date Provider Diagnosis [address] [address] 01/07/2025 MARIAH OLGUIN PLAN OF TREATMENT Next Appt Details Provider Name:MIGDALIA Wright, 06/24/2025 08:30:00 AM, [address] [place] [address], [phone], Provider Name:MARIAH REESE, 06/24/2025 09:00:00 AM, [address] [place] [address], [phone],
--- OUTSIDE RECORDS SUMMARY | 2025-01-20 10:10 | XMS_ITS | Patient Health Record ---
Author Organization [facility] Address [address], [place] [id number] Care Team Providers Care Side Panel Hanger Name Role Phone MARIAH OLGUIN Primary Care Provider ALLERGIES No Known Allergies REASON FOR REFERRAL No Information MEDICATIONS Medication [...] 13, PEDS STATE SUPPLIED Unknown 01/04/2015 Administered UkxzbyVAY31 IM Intramuscular 05/10/2023 Administered RSV,recombinant,protein subunit,RSVpreF, adjuvant IM Intramuscular 01/19/2023 Administered SHINGRIX HZV VACCINE Unknown 12/18/2017 Administered SHINGRIX HZV VACCINE Unknown 12/28/2018 Administered Tdap (Adacel) Unknown 04/14/2008 Pending Tdap (Adacel) Unknown 12/18/2017 Administered Tdap (Adacel)11-64,State Supplied Unknown 04/14/2008 Administered Zostavax (Shingles) SC Subcutaneous 06/19/2012 Administere d Influenza, Fluzone, High-Dose, 65+ Unknown 01/25/2016 Administered PREVNAR 13, STATE SUPPLIED Unknown 01/05/2015 Administe vikas SOCIAL HISTORY Tobacco Use: Social History Observation [...] Working 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 Working 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 never smoked never smoked never smoked never smoked never smoked never smoked Working 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) Active confirmed Atheroscle rotic heart disease of [place] coronary artery without angina pectoris (526668223565528 ) Problem Functional dyspepsia (K30) Active confirmed Functional dyspepsia (1968369) Problem Macrocytosis (D75.89) Active confirmed 041649615 Problem Family history of GI malignancy (Z80.0) Active confirmed 022313741 Problem Low vitamin D level (E55.9) Active confirmed Vitamin D deficiency (88324954) Problem Postconcussive syndrome (F07.81) Active confirmed 26437306 Problem Enlarged prostate wi th lower urinary tract symptoms (LUTS) (N40.1) Active confirmed 785418890 Problem Memory problem (R41.3) Active confirmed 080166591 Problem Pure hypercholesterolemia (E78.00) Active confirmed 173846927 Problem Hearing loss, unspecified hearing loss type, unspecified laterality (H91.90) Active confirmed 40147937 Problem Hearing loss of left ear, unspecified hearing loss type (H91.92) Active confirmed 150316809 VITAL SIGNS Blood pressure diastolic 62 mm Hg 11/12/2024 Height 70 in 11/12/2024 Blood pressure systolic 124 mm Hg 11/12/2024 Weight 162 lbs 11/12/2024 BMI 23.24 kg/m2 11/12/2024 Encounters Encounter Location Date Provider Diagnosis [address] [address] 03/18/2024 MAR[place] [id number] 03/20/2024 [place] [id number] 04/22/2024 [place] [id number] 04/22/2024 [place]H [place]GUIN [place] [id number] 04/23/2024 [facility] [place] [id number] 04/23/2024 [facility] [place] [id number] 04/24/2024 [place] [id number] 05/13/2024 [facility] [place] [id number] 05/15/2024 MARIAH CLAU Medicare annual well ness visit, subsequent Z00.[address] [address] 05/15/2024 MARIAH OLGUIN Major depressive dis order, single episode, unspecified F32.9 ; Pure hypercholesterolemia E78.00 ; Postconcussive syndrome F07.81 and Impacted cerumen, left ear H61.22 [place] [id number] 09/30/2024 MARIAH OLGUIN Insect bite (nonveno mous) of abdominal wall, initial encounter S30.861A and Bitten or stung by nonvenomous insect and other nonvenomous arthropods, initial encounter W57.XXXA [address] [place] [address] 10/02/[address] [address] 11/05/[address] [address] 11/05/[address] [address] 11/06/2024 [place] [id number] 11/11/[address] [address] 11/12/2024 [facility] Atherosclerotic hear t disease of [place] coronary artery without angina pectoris I25.10 ; Major depressive disorder, single episode, unspecified F32.9 ; Pure hypercholesterolemia E78.00 ; Postconcussive syndrome F07.81 ; Low vitamin D level E55.9 and Medication management Z79.899 [place] [id number] 12/25/2024 [place] [id number] 01/03/2025 [place] [id number] 01/07/2025 [facility] Encounter Date Diagnosis Assessment Notes Treatment Notes Treatment Clinical Notes Section Notes 09/30/2024 Insect bite (nonvenomous) of abdominal wall, initial encounter (ICD-10 - S30.861A) 11/12/2024 Atherosclerotic hear t disease of [place] coronary artery without angina pectoris (ICD-10 - I25.10) Patient had some angina last week. 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 Continue present management. Follow-up [...] CERVICAL min 4 views -SMA 03/2020 AST (SGOT)-748265 05/12/2025 Vitamin K89-608321 05/12/2025 ALT (SGPT)-941399 05/12/2025 Vitamin D, 23-Bsjeekb-145507 05/12/2025 Lipid Panel-223403 05/12/2025 BMP8+eGFR-021533 05/12/2025 Next Appt Details Provider Name:MIGDALIA Wright, 06/24/2025 08:30:00 AM, [address] [place] [address], [phone], Provider Name:MARIAH HARDY ERG, 06/24/2025 09:00:00 AM, [address] [place] [address], [phone], Insurance Providers Payer Name Payer Address Payer Phone Subscriber Number Group Number Insured Name Patient Relationship to Insured Coverage Start Date Coverage End Date [employer]IC[employer] [address] [place] [address] [phone] [id number] RONY DE PAZ Self - patient is the insured [address] [employer] [address] [address] [place] [address] [phone] [id number] RONY DE PAZ Self - patient is the insured MEDICAL (GENERAL) HISTORY Medical History History ICD Code Anemia-Hgb12.7,MCV86,%ironsa t18-05/14-Iron def///Father colon polyps/Cancer--,PA----dpskvjot19(05/14)//TTG nl 07/12/Hgb3/08nl////EGD4/21/08 SBBX nl(SIBx-nl,,COlon 08/26/07-mod sigm tics-Iron def anemia unclear etiology- REc path=Nl Duod, RTo4 mo c Hgb 1 week before,IRon,VitC colon 2012 with diverticulosis//Colon04/23/18-TIcs right and left-Rec fiber,Lscef7htlGjvc R shoulder tendonitis Elevated ALT/AST depression/anxiety dyspepsia -resolved when stopped fish oi l Arthritis Hypoglycemia Palpitations FH colon cancer in father- in 80's Pt has been under moderate stress recent ly CAD, s/p CABG x2- 03/2012 Dr. Daley-Derm, Dr. Brooks-Cardio, Dr. Henderson olf-Eye Chronic anemia inguinal hernia (see surgical hx) covid HCP- Adriana LiCote () Surgical History Surgery Date(Month/Year) inguinal hernia repair 12/19/19 wisdom teeth removal as a teen cataract surgery 02/18/2018 Double Coronary Bypass 03/15/2012 Cardiac Cath 03/14/2012 Hospitalization History Reason Date(Month/Year) [facility]- concussion 06/09/21 [facility] Dx; abnormal stress test double john nary bypass 03/14/2012 - 03/21/2012
--- OUTSIDE RECORDS SUMMARY | 2025-01-20 10:10 | XMS_ITS | Clinical Summary ---
Author Organization [facility] [employer] [facility] lin Address [address] [place] [address] Care Team Providers Care Shredded Filler Hopper Feeder Name Role Phone Unavailable Primary Care Provider [...] Adults 18 yrs or above (or HM Modifier)([facility]) 10/21/1967 Hepatitis C Virus Infection in Adolescents and Adults: Screening (or Modifier) ([facility]) 10/21/1967 SDOH Screening Reminder: Jessica lyles for all adults ([facility]) 10/21/1967 Tobacco Smoking Cessation: i n Adults excluding Women: Behavioral and Pharmacotherapy Interventions ([facility]) 10/21/1967 DTaP/Tdap/Td Vaccines ([facility]) (1 - Tdap) 1968 Colorectal Cancer Screening 45 -75 Yrs (or HM Modifier ) 1994 Colorectal Cancer: FLEXIBLE SIGMOIDOSCOPY Screening every 5 yrs 1994 Colorectal Cancer: Fecal Imm unochemical Test (FIT) Annually [facility] 1994 Colorectal Cancer: High-sens itivity gFOBT Screening Annually [facility] 1994 Colorectal Cancer: Stool Col oguard Screening every 3 yrs 1994 Colorectal Cancer:CT Colonography Screening every 5 yr s 1994 Pneumococcal Vaccination Scr eening: Patients 50+ yrs of age ([facility]) (1 of 1 - PCV) 10/21/1999 Zoster/Shingles Vaccine Seri es Screening: Adults aged 18+ yrs (or HM Modifiers)([facility]) (1 of 2) 10/21/1999 COVID-19 Vaccine Screening: Initial Series and Booster Status ([facility]) ( - 2023-25 season) 2024 RSV Vaccines (1 - 1-dose 75+ series) 2024 Flu Vaccination: Ages 65+: Y early High Dose Recommended (or Modifier)([facility]) 12/05/2024 [employer] Not on file [place] [address] [address] MEDICARE Member Subscriber Plan / Payer (Ef fective 2020-Present) Name:Justin Thakkar Relation to Subscriber:Self Name:Justin Thakkar Payer ID:Not on file Group ID:[id number] [id number] Type:Not on file Address: [facility] [id number] [place] [address]
--- OUTSIDE RECORDS SUMMARY | 2025-01-20 10:10 | XMS_ITS | Clinical Summary ---
Author Organization [facility] [facility] Address [address] [facility] [place] [address] Phone Care Team Providers Care Director Dermatology Name Role Phone Julia Levin MD Primary Care Provider [phone] Allergies No known active allergies Medications metoprolol succinate (TOPROL-XL) 25 mg 24 hr tablet Take 1 tablet (25 mg total) by mouth 1 (one) time each day. Pt's luggage was lost and his medications were in it, please fill this temporary supply 30 tablet 4 Active memantine (NAMENDA) 10 mg tablet Take 1 tablet (10 mg total) by mouth 2 (two) times a day. Active aspirin 81 mg EC tablet Take 1 tablet (81 mg total) by mouth 1 (one) time each day. Active venlafaxine XR (EFFEXOR-XR) 37.5 mg 24 hr capsule Take 1 capsule (37.5 mg total) by mouth 1 (one) time each day. Active simvastatin (ZOCOR) 5 mg tablet Take 1 tablet (5 mg total) by mouth at bedtime. Active fluticasone propionate (FLONASE) 50 mcg/actuation nasal spray Administer 1 spray into each nostril 2 (two) times a day. Shake gently. Before first use, prime pump. After use, clean tip and replace cap. Active omega 1-oqd-lxl-fish oil (Fish OiL) 1,000 (120-180) mg capsule Take 1 capsule (1,000 mg total) by mouth 1 (one) time each day. Active cyanocobalamin (VITAMIN B-12) 1,000 mcg tablet Take 1 tablet (1,000 mcg total) by mouth 1 (one) time each day. Active Active Problems Problem Noted Date Diagnosed Date CAD (coronary artery disease) 11/19/2024 Assessment & Plan (11/20/2024 11:28 AM EDT): Has history of coronary artery disease status multivessel bypass with an COOPER graft to the LAD, vein graft and OM in 2001. He reports intermittent dull ache sensation in his chest which has been occurring off and on since his cardiac surgery. He reports that recently he has noticed this has been occurring more frequently and for longer duration and time. He states that the discomfort usually comes on with activity and can last for several hours after activity is done. He denies any overt chest pain or significant dyspnea and he usually continues with the activity despite the discomfort. At this time he denies any overt chest pain. We discussed the possibility of starting isosorbide however at this time he declines starting this as he has noticed his discomfort has improved over the last several days. In the last we will arrange for update and cardiac testing with a nuclear stress test and echocardiogram. He will continue with his cardioprotective medical therapy including aspirin, beta-hardeep and statin. I have reviewed with the patient the importance of a heart healthy lifestyle which includes eating a low-fat low-salt diet, getting regular exercise, maintaining a healthy weight, not smoking, and following up with routine medical care. Palpitations 11/19/2024 Encounters Date Type Department Care Team Description 12/31/2024 8:30 AM EDT Ancillary Procedure [facility] [address] [address] [place] [address] Coronary artery disease, unspecified vessel or lesion type, unspecified whether angina present, unspecified whether southern ute or transplanted heart 12/11/2024 9:00 AM EDT Ancillary Procedure [facility] [address] [place] [address] Coronary artery disease, unspecified vessel or lesion type, unspecified whether angina present, unspecified whether southern ute or transplanted heart 11/20/2024 10:40 AM EDT Office Visit [facility] [address] [facility] [address] [place] [address] Mamta Solis NP Coronary artery disease, unspecified vessel or lesion type, unspecified whether angina present, unspecified whether southern ute or transplanted heart (Primary Dx) 11/13/2024 Telephone [facility] Cardiology [facility] [address] [facility] [address] [place] [address] Bola Brooks MD from Last 3 Months Medical History Medical History Date Comments Chronic ischemic heart disease D X:Chronic ischemic heart disease Hyperlipidemia DX:Hyperlipidemi a Family History Medical History Relation Name Comments Hypertension Father Other: heart valve replacement Father Hypertension Mother Relation Name Status Comments Father Mother Social History Tobacco Use Types Packs/Day Years Used Date Smoking Tobacco: Never Smokeless Tobacco: Never Alcohol Use Standard Drinks/Week Comments Yes 0 (1 standard drink = 0.6 oz pure alcohol) beer/wine/cat - 1 drink per day Sex and Gender Information Value Date Recorded Sex Assigned at Not on file Legal Sex Male 7:01 AM EST Gender Identity Not on file Sexual Orientation Not on file Obstetrics History Last Filed Vital Signs Vital Sign Reading Time Taken Comments Blood Pressure 138/60 12/31/2024 9:10 AM EDT Pulse 90 11/20/2024 10:40 AM EDT Temperature - - Respiratory Rate - - Oxygen Saturation 98% 11/20/2024 10:40 AM EDT Inhaled Oxygen Concentration - - Weight 73.5 kg (162 lb) 12/31/2024 9:10 AM EDT Height 177.8 cm (5' 10 ) 12/31/2024 9:10 AM EDT Body Mass Index 23.24 12/31/2024 9:10 AM EDT Plan of Treatment Health Maintenance Due Date Last Done Comments Cholesterol Screening (Lipid Panel) 04/13/2022 Colorectal Cancer Screening: Colonoscopy 04/13/2022 Falls Risk Assessment 04/13/2022 Hepatitis C Screening 04/13/2022 Medicare Annual Wellness Visit 04/13/2022 Social Influencers of Health Screening 04/13/2022 Hypertension/CHF/CAD Annual BMP Blood Test 04/16/2022 Depression Screening 05/07/2024 COVID-19 Vaccine ( season) 2025 02/19/2024, 02/09/2023, 02/08/2022, Additional history exists Influenza Vaccine (#1) 2025 , 01/19/2023, 02/08/2022, Additional history exists DTaP,Tdap,and Td Vaccines (2 - Td or Tdap) 12/19/2027 12/18/2017 Zoster Vaccines Completed 07/07/2019, 12/18/2017 RSV Immunization Adult Patients Completed 01/19/2023 Pneumococcal Vaccine: 50+ Years Completed 05/10/2023, 11/10/2016, 01/04/2015 HIB Vaccines Aged Out No longer eligi ble based on patient's age to complete this topic HPV Vaccines Aged Out No longer eligi ble based on patient's age to complete this topic Hepatitis A Vaccines Aged Out No long er eligible based on patient's age to complete this topic Hepatitis B Vaccines Aged Out No long er eligible based on patient's age to complete this topic IPV Vaccines Aged Out No longer eligi ble based on patient's age to complete this topic MMR Vaccines Aged Out No longer eligi ble based on patient's age to complete this topic Meningococcal ACWY Vaccine Aged Out N o longer eligible based on patient's age to complete this topic Meningococcal B Vaccine Aged Out No l onger eligible based on patient's age to complete this topic RSV Immunization Patients Under 20 months Aged Out No longer eligible based on patient's age to complete this topic Varicella Vaccines Aged Out No longer eligible based on patient's age to complete this topic Procedures Procedure Name Priority Date/Time Associated Diagnosis Comments TRANSTHORACIC ECHOCARDIOGRAM (TTE) COMPLETE Routine 12/31/2024 9:12 AM EDT Coronary artery disease, unspecified vessel or lesion type, unspecified whether angina present, unspecified whether southern ute or transplanted heart NM EXERCISE STRESS TEST W/ MYOCARDIAL PERFUSION Routine 12/11/2024 11:11 AM EDT Coronary artery disease, unspecified vessel or lesion type, unspecified whether angina present, unspecified whether southern ute or transplanted heart ECG 12-LEAD Routine 11/20/2024 11:28 AM EDT Coronary artery disease, unspecified vessel or lesion type, unspecified whether angina present, unspecified whether southern ute or transplanted heart from Last 3 Months Results * TRANSTHORACIC ECHOCARDIOGRAM (TTE) COMPLETE (12/31/2024 9:12 AM EDT) Left Atrium Minor Bascom 5.1 cm CV PACS Left Atrium Major Bascom 4.7 cm CV PACS LA Area Sys (A2C) 15 cm2 CV PACS LA Area Sys (A4C) 17 cm2 CV PACS LA Volume (BP) 43 mL CV PACS RA Area 19.9 cm2 CV PACS RA 2D Volume 59 mL CV PACS Aortic Sinus Valsalva 3.2 cm CV PACS Ascending Aorta 3.6 cm CV PACS IVSD 0.8 0.6 - 1.0 cm CV PACS LVIDD 4.2 4.2 - 5.8 cm CV PACS LVIDS 2.6 2.5 - 4.0 cm CV PACS LVOT Diameter 2.5 cm CV PACS LVOT Mean Marco Antonio 0.5 m/s CV PACS LVOT Mean Grad 1 mmHg CV PACS LVOT Peak VTI 17.4 cm CV PACS LVOT Peak Marco Antonio 0.7 m/s CV PACS LVOT Peak Gradient 2 mmHg CV PACS LVPWD 0.9 0.6 - 1.0 cm CV PACS MV E' Tissue Velocity Lateral 8 cm/s CV PACS MV E' Tissue Velocity Septal 6 cm/s CV PACS LVOT Area 4.9 cm2 CV PACS LVOT Stroke Volume 85 mL CV PACS MV Deceleration [place] 3.3 m/s2 CV PACS E Wave Deceleration Time 153 119 - 242 ms CV PACS MV PHT 45 ms CV PACS MV Peak A Marco Antonio 0.81 m/s CV PACS MV Peak E Marco Antonio 0.50 m/s CV PACS MV Area PHT 4.9 cm2 CV PACS PV Acceleration Time 111 ms CV PACS PV Acceleration Time 111 ms CV PACS RV Diastolic Basal Dimension 3.5 2.5 - 4.1 cm CV PACS TAPSE 20 mm CV PACS E/E' Ratio Septal 8 CV PACS E/E' Ratio Averaged 7 CV PACS Relative Wall Thickness ratio 0.43 CV PACS FS 38 % CV PACS LV Mass 2D 110 g CV PACS LVOT flow 245 mL/s CV PACS E/A Ratio 0.6 CV PACS E/E' Ratio Lateral 6 CV PACS BSA 1.91 m2 CV PACS LA Volume Index (BP) 23 mL/m2 CV PACS LVIDD Index 2.20 cm/m2 CV PACS LVIDS Index 1.36 cm/m2 CV PACS LV Mass Index 2D 58 50 - 102 g/m2 CV PACS LVOT Stroke Index 45 mL/m2 CV PACS RA 2D Volume Index 31 18 - 32 mL/m2 CV PACS Ascending Aorta Index 1.88 cm/m2 CV PACS Anatomical Region Laterality Modality Ultrasound Narrative 01/04/2025 6:22 PM EDT Left ventricle cavity size is normal. Left ventricular systolic function is in the normal range with an ejection fraction in the 55-70% range. No regional LV wall motion abnormalities noted. Left ventricle wall thickness is normal. Right ventricle cavity is normal. Right ventricular systolic function is normal. Tricuspid valve leaflets exhibit normal excursion. Mild mitral and aortic insufficiency Left Ventricle Left ventricle cavity size is normal. Wall thickness is normal. Systolic function is normal with an ejection fraction in the 55-70% range. Dyskinetic septum consistent with prior surgery, otherwise there are no regional LV wall motion abnormalities. There is no diastolic dysfunction. Right Ventricle Right ventricle cavity appears normal. Systolic function is normal. Normal TAPSE (> 17 mm). Left Atrium Left atrium cavity size is normal. Right Atrium Right atrium cavity is normal. IVC/SVC RA pressures is estimated to be 3 mmHg (IVC diameter <21 mm and decreases >50% during inspiration). Mitral Valve The leaflets exhibit normal excursion. There is mild regurgitation. There is no evidence of mitral valve stenosis. Tricuspid Valve The leaflets exhibit normal excursion. There is trace regurgitation. Cannot assess RVSP. Aortic Valve The aortic valve is trileaflet. There is mild regurgitation. There is no evidence of aortic valve stenosis. Pulmonic Valve Pulmonic valve structure is normal. There is trace pulmonic valve regurgitation. Ascending Aorta The aorta appears normal in size. Pericardium Pericardium appears normal. There is no pericardial effusion. Study Details Overall the study quality was adequate. us Mamta Bartolucci ARRANGING FUNERAL DIRECTOR CV ECHO PROCEDURES Final Res ult * NM EXERCISE STRESS TEST W/ MYOCARDIAL PERFUSION (12/11/2024 11:11 AM EDT) Exercise/injec tion duration (min) 8 CV PACS STRESS Exercise/injec tion duration (sec) 59 CV PACS STRESS Peak SBP 155 mmHg CV PACS STRESS Peak DBP 88 mmHg CV PACS STRESS Peak HR 112 bpm CV PACS STRESS Baseline HR 60 bpm CV PACS STRESS Baseline SBP 132 mmHg CV PACS STRESS Baseline DBP 74 mmHg CV PACS STRESS Estimated workload 10.1 METS CV PACS STRESS Percent HR 77 % CV PACS STRESS Rate Pressure Product 17,360.0 mmHg*bpm CV PACS STRESS Target HR 123 bpm CV PACS STRESS TID 0.84 CV PACS STRESS Nuc Stress EF 58 % CV PAC S STRESS Nuc Rest EF 68 % CV PACS STRESS BSA 1.9 m2 CV PACS STRESS Max HR Percent 77 % CV PA CS STRESS Anatomical Region Laterality Modality Nuclear Medicine 12/11/2024 9:43 AM EDT 12/11/2024 10:24 AM EDT Narrative 12/11/2024 7:34 PM EDT Stress ECG was normal. Exercise stress test was performed. Exercise capacity was fair. Normal blood pressure response. Normal myocardial perfusion study. LV perfusion is normal. Normal left ventricular function post-stress. Stress ejection fraction is 58%. Stress Findings A Edy protocol stress test was performed. Overall, the patient's exercise capacity was excellent. The patient reached stage 3. Total stress time was 8 min and 59 sec. The test was stopped because the patient experienced shortness of breath. Blood pressure demonstrated a normal response. Heart rate demonstrated a normal response. The patient reported shortness of breath during the stress test. ECG 74-year-old male with a past medical history significant for coronary artery disease status post multivessel bypass including COOPER graft to the LAD, vein graft to OM. Reporting an increase in chest discomfort with activity, into rule out ischemia. The patient is on metoprolol during testing. Baseline EKG: Sinus rhythm There were no arrhythmias during stress. There were no arrhythmias during recovery. The result of the stress ECG was negative for ischemia. Nuclear Study Quality Study technique: MPI, SPECT, multi, rest and stress, 1 day and gated. Overall image quality is good. CT attenuation correction was utilized. No radiopharmaceutical dose was extravasated. The time from injection to rest imaging is 30 mins. The time from injection to stress imaging is 35 mins. Perfusion Defect Conclusion There is no evidence of transient ischemic dilation (TID). Stress Function Comments Left ventricular systolic function post-stress is normal. Stress ejection fraction is 58%. Rest Function Comments Left ventricular function at rest was normal. Resting ejection fraction was 68%. Stress Combined Conclusion Normal myocardial perfusion study. Overall low cardiovascular risk. CT Findings Minimal coronary calcification Perfusion Comments LV perfusion is normal. There is no evidence of inducible ischemia. Mamta Solis NP CV STRESS PROCEDURES Final R esult * ECG 12 lead (11/20/2024 11:28 AM EDT) Ventricular Rate ECG 83 BPM GEMUSE Atrial Rate 83 BPM GEMUSE P-R Interval 172 ms GEMUSE QRS Duration 90 ms GEMUSE Q-T Interval 344 ms GEMUSE QTc 404 ms GEMUSE P Wave Bascom 71 degrees GEMUSE R Bascom 74 degrees GEMUSE T Bascom 73 degrees GEMUSE ECG Interpretation Normal sinus rhythm Normal ECG No previous ECGs available Confirmed by Vipin BROOKS JAMES ([id number]) on 12/02/2024 12:48:08 PM GEMUSE 11/20/2024 10:5 5 AM EDT 12/02/2024 12:48 PM EDT Mamta Solis NP ECG ORDERABLES Edited Resul t - Final GEMUSE from Last 3 Months Insurance MEDICARE [facility] Care Teams Director Dermatology Relationship Specialty Start Date End Date Julia Levin MD PCP - General Internal Medicine 11/05/20
--- OUTSIDE RECORDS SUMMARY | 2025-01-20 10:10 | XMS_ITS | Clinical Summary ---
Author Organization [facility] Address [address] [place] [address] Phone Care Team Providers Care Data Control Clerk Name Role Phone Julia Levin MD Primary Care Provider [phone] Social History Tobacco Use Types Packs/Day Years [...] [place]OSS [place] MED[place] PPO BLUE REPLACEMENT [facility] MEDICARE PPO BLUE [place] [address] MEDICARE PPO BLUE REPLACEMENT Care Teams Data Control Clerk Relationship Specialty Start Date End Date Julia Levin MD [address] [place] [address] PCP - General Family Medicine 03/25/20 Additional Source Comments The information contained in this document represents components of the legal health record. It is not the complete legal health record.[facility]
[2025-01-20 10:25] LABS: Folate 14.4 ng/mL (> or = 4.0); Vitamin B12 916 pg/mL (200-900)
[2025-01-20 11:13] LABS: Free T4 (Free Thyroxine) 0.92 ng/dL (0.71-1.85)
== END 2025-01-20 08:30 | disposition home or self-care (01) ==
LOC: HO.LAB 08:29
PROVIDERS: PCP Family Medicine; Visit Provider Registered Nurse
DX: G31.84 Mild cognitive impairment of uncertain or unknown etiology (principal)
CPT/HCPCS: 36415; 82607; 82746; 84439; 84443

== ENCOUNTER 2025-01-20 08:56 | Outpatient (AMB) | payer BC, SELFPAY ==
[2025-01-20 09:03] VITALS: BP 122/68; PULSE 83; RESP 16; O2SAT 96; BMI 22.7
--- NOTE | 2025-01-20 09:03 | A.OFFVIS_ITS ---
Vital Signs 01/20/25 09:03 Height 5 ft 10 in Weight 158 lb BMI 22.7 BP 122/68 Blood Pressure Location Rt brachial Position Sitting Respiration 16 Pulse 83 Pulse Oximetry (%) 96 Intake Visit Reasons: COGNITIVE TESTING/30MINS Sand Polisher Required: No Allergies No Known Allergies (No Known Allergies*) Allergy (Unverified 01/20/25 09:14) HPI Comments Details: Justin is a 74-year-old male patient presenting to the clinic today for a cognitive assessment. He was most recently seen by Pauline Morfin NP for evaluation of his memory on 01/14/2025. HPI from most recent encounter as follows: He was doing okay. He was forgetful at times, misplacing things around the house, such as his glasses or phone, and it could take him some time to find them. He felt like he had trouble focusing and like his mind was always racing. He thought this may be related to memantine dose, but felt memory was worse when taking lower dose of medication. His noted that he often interrupted her when she was talking. Sleep was okay, getting 8+ hours/night. Mood was okay with venlafaxine. Headaches have been okay, worse in spring and fall with overcast weather. No falls. Was taking memantine 10mg once a day for period of time as medications got lost while traveling in [facility] and felt memory was worse without full dose, but did not notice much difference. Driving locally without any issues. He made some mistakes paying bills and was not responsible for paying as many as before. It takes him longer to do things. Mild forgetfulness, some word finding and name recall difficulties. Headaches usually occur with weather change and last 1-2 hours. Gets some headache daily for 15-20 minutes. They may be set off by riding on bumpy roads. Infrequency optical migraines with ripples 1/2 or full vision every 2 weeks or up to 2x/week. Before concussion, he had them every 2 months followed by a discomfort in the head for 4 hours. They started 20+ years ago. He has had some minor short-term memory problems before. Has been getting lot of headaches since then. 48 hours after the head trauma, he had CAT scan of the head and some other testing which were negative. He had occasional sharp needle and pins-like sensation in soles of feet that come and go every few months and can happen 1- 2x/week for about 30-60 minutes. He also gets occasional tingling in his hands, but not consistently. Decreased flow in LLE. The plan at the time of their last visit was to obtain a B12 and TSH level as well as an MRI of the brain, cognitive scoring test, and eventually a PET scan. He is here today specifically to have his Barry score completed. [facility] Medical History (Updated 01/14/25 @ 10:02 by Pauline Morfin CNP) MCI (mild cognitive impairment) Tension headache Migraine variant Paresthesia CAD (coronary artery disease) Physical Exam Exam Exam: MOCA: MOCA total: Executive:08/09 Namin/3 Attention:10/10 Language:07/07 Abstraction:06/08 Delayed recall:06/11 Orientation:09/09 Vital Signs: Last Vital Signs Pulse 83 01/20/25 09:03 Resp 16 01/20/25 09:03 BP 122/68 01/20/25 09:03 Pulse Ox 96 01/20/25 09:03 BMI result Body Mass Index 22.7 Const General: cooperative, healthy appearing, comfortable and no acute distress Orientation/consciousness: oriented to person, oriented to place and oriented to time (Vague on time. Wrong month given) Neuro General: oriented to person, oriented to place and oriented to time (Vague on time. Wrong month given) Cranial nerves: Yes CN's II-XII intact bilaterally Gait exam (Neuro): Normal gait present Assessment & Plan Assessment & Plan (1) MCI (mild cognitive impairment): Code(s): G31.84 - Mild cognitive impairment of uncertain or unknown etiology Category: Medical Plan: . Plan MCI. Pt here today for MOCA score as part of memory workup. Last seen by Pauline Morfin 01/14/2025. PT will be obtaining MRI brain and once resulted will consider moving forward with PET scan. PT would like to explore Marcin or Hannahi if he is a canidate. I did take the time today after our cognative screening to educate the patient on the plan for next steps and expectations moving forward. -Barry score completed today -B12 and TSH level completed this am -Brain MRI ordered. Awaiting scheduling -PET scan for future pending other test results Coding Level of Care Code Est Pt Level 2 (58483) Diagnoses MCI (mild cognitive impairment) G31.84
== END 2025-01-20 09:41 | disposition home or self-care (01) ==
LOC: HO.HSM 08:57
PROVIDERS: PCP Family Medicine; Visit Provider Nurse Practitioner
DX: G31.84 Mild cognitive impairment of uncertain or unknown etiology (principal)
CPT/HCPCS: 99212

== ENCOUNTER 2025-02-18 16:36 | Outpatient (REF) | payer MEDICARE, SELFPAY ==
--- OUTSIDE RECORDS SUMMARY | 2024-11-11 19:34 | XMS_ITS ---
Author Organization [facility] Address [address] [place], [place] [id number] Care Team Providers Care Analytical Chemistry Teacher Name Role Phone MARIAH OLGUIN Primary Care Provider REASON FOR VISIT RE:RE:Metoprolol Succinate short supply SOCIAL HISTORY Sex Assigned At : Social History Observation Description Sex Assigned At Male Encounters Encounter Location Date Provider Diagnosis [address] [address] 11/11/2024 MARIAH OLGUIN PLAN OF TREATMENT Next Appt Details Provider Name:NURSING NANETTE Wright, 06/24/2025 08:30:00 AM, [address] [place] [address], [phone], Provider Name:MARIAH REESE, 06/24/2025 09:00:00 AM, [address] [place] [address], [phone],
--- OUTSIDE RECORDS SUMMARY | 2024-11-12 04:40 | XMS_ITS ---
Author Organization 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 He is advised to call his clinical study manager immediately for follow-up. Continue present management. Follow-up [...] Assessment Notes Atherosclerotic heart diseas e of [place]ht[place] coronary artery without angina pectoris Patient had some angina last week. He is advised to call his clinical study manager immediately for follow-up. Continue present management. Follow-up [...] Future Test Test Name Order Date AST (SGOT)-[id number] 05/12/2025 Vitamin [id number] 05/12/2025 ALT (SGPT)-[id number] 05/12/2025 Vitamin D, 55-Bcqqmxu-366840 05/12/2025 Lipid Panel-478456 05/12/2025 BMP8+eGFR-298078 05/12/2025 Next Appt Details Follow Up: Follow-up in 6 mo nths already booked, Reason: Provider Name:MIGDALIA Wright, 06/24/2025 08:30:00 AM, [address] [place] [address], [phone], Provider Name:MARIAH REESE, 06/24/2025 09:00:00 AM, [address] [place] [address], [phone], Progress Notes * Examination Category Sub-Category Detail [...] he can self refer to orthopedics at [facility] but that if he wants to discuss this further he can book another visit.
--- OUTSIDE RECORDS SUMMARY | 2024-12-25 14:37 | XMS_ITS ---
Author Organization [facility] Address [address] [place], [place] [id number] Care Team Providers Care Wash Rack Operator Name Role Phone MARIAH OLGUIN Primary Care Provider REASON FOR VISIT MOLSTD Form SOCIAL HISTORY Sex Assigned At : Social History Observation Description Sex Assigned At Male Encounters Encounter Location Date Provider Diagnosis [address] [address] 12/25/2024 MARIAH OLGUIN PLAN OF TREATMENT Next Appt Details Provider Name:NURSING NANETTE Wright, 06/24/2025 08:30:00 AM, [address] [place] [address], [phone], Provider Name:MARIAH REESE, 06/24/2025 09:00:00 AM, [address] [place] [address], [phone],
--- OUTSIDE RECORDS SUMMARY | 2025-01-03 09:28 | XMS_ITS ---
Author Organization [facility] Address [address] [place], [place] [address] Care Team Providers Care Automotive Leasing Sales Representative Name Role Phone MARIAH OLGUIN Primary Care Provider REASON FOR VISIT RE:MOLSTD Form SOCIAL HISTORY Sex Assigned At : Social History Observation Description Sex Assigned At Male Encounters Encounter Location Date Provider Diagnosis [address] [address] 01/03/2025 MARIAH OLGUIN PLAN OF TREATMENT Next Appt Details Provider Name:NURSING NANETTE Wright, 06/24/2025 08:30:00 AM, [address] [place] [address], [phone], Provider Name:MARIAH REESE, 06/24/2025 09:00:00 AM, [address] [place] [address], [phone],
--- OUTSIDE RECORDS SUMMARY | 2025-01-07 06:10 | XMS_ITS ---
Author Organization [facility] Address [address] [place], [place] [address] Care Team Providers Care Latin Professor Name Role Phone MARIAH OLGUIN Primary Care Provider [phone] REASON FOR VISIT RE:RE:MOLSTD Form SOCIAL HISTORY Sex Assigned At : Social History Observation Description Sex Assigned At Male Encounters Encounter Location Date Provider Diagnosis [address] [address] 01/07/2025 MARIAH OLGUIN PLAN OF TREATMENT Next Appt Details Provider Name:MIGDALIA Wright, 06/24/2025 08:30:00 AM, [address] [place] [address], [phone], Provider Name:MARIAH REESE, 06/24/2025 09:00:00 AM, [address] [place] [address], [phone],
--- NOTE | ~2025-02-18 | MR_ITS ---
EXAMINATION: MR BRAIN WITHOUT CONTRAST CLINICAL INFORMATION: G 31.84. Mild cognitive impairment of uncertain or unknown etiology. COMPARISON: Correlated to CT dated December 16, 2021. TECHNIQUE: MRI of the brain was obtained using routine sequences without contrast. FINDINGS: No restricted diffusion. No acute intracranial hemorrhage, mass effect, midline shift, hydrocephalus or herniation. Jalloh-white matter differentiation is normal. Asymmetric prominent right temporal horn lateral ventricle likely secondary to volume loss of the right hippocampus. No signal abnormality within the hippocampi. Nonspecific subcortical white matter hyperintense T2 FLAIR signal foci, bifrontal lobes. Prominence of the extra-axial CSF spaces cerebral sulci involving mostly the frontotemporal lobes. Posterior cranial fossa contents demonstrated no signal abnormality or mass effect. Normal position of the cerebellar tonsils. Sellar/suprasellar region is normal. Flow-void signal within the main cerebral vessels is normal. MR/MR head/brain wo con IMPRESSION: No acute brain abnormality. Asymmetric volume loss right hip hippocampi without signal abnormality. Mild bifrontal temporal lobe atrophy. Nonspecific T2 FLAIR signal foci, bifrontal lobes. Electronically signed by: Juanjo Blount MD 02/19/2025 07:01 AM EDT
--- OUTSIDE RECORDS SUMMARY | 2025-02-18 19:29 | XMS_ITS | Clinical Summary ---
Author Organization [facility] Address [address] [place] [address] Care Team Providers Care Member Certification Manager Name Role Phone Unavailable Primary Care [...] to complete this topic DR RODRIGUEZ, KAREL [address]
--- OUTSIDE RECORDS SUMMARY | 2025-02-18 19:30 | XMS_ITS | Patient Health Record ---
Author Organization [facility] Address [address] [place], [place] [id number] Care Team Providers Care Remote Medical Coder Name Role Phone MARIAH OLGUIN Primary Care [...] Vaccine Route Administration Date Status Comme nts PREVNAR 13, STATE SUPPLIED Unknown 01/05/2015 Administe red Influenza, Fluzone, High-Dose, 65+ Unknown 01/25/2016 Administered Zostavax (Shingles) SC Subcutaneous 06/19/2012 Administere d Tdap (Adacel)11-64,State Supplied Unknown 04/14/2008 Administered Tdap (Adacel) Unknown 04/14/2008 Pending Tdap (Adacel) Unknown 12/18/2017 Administered SHINGRIX HZV VACCINE Unknown 12/18/2017 Administered SHINGRIX HZV VACCINE Unknown 12/28/2018 Administered RSV,recombinant,protein subunit,RSVpreF, adjuvant IM Intramuscular 01/19/2023 Administered [id number] IM Intramuscular 05/10/2023 Administered Pneumococcal,Prevnar 13, PEDS STATE SUPPLIED Unknown 01/04/2015 Administered Pneumococcal, PPV 23 IM Intramuscular 12/18/2017 Administe red Pneumococcal (PPV23, adult) IM Intramuscular 04/05/2012 Administered Pfizer COVID-19,mRNA, LNP-S, PF, 30mcg/0.3mL dose Unknown 07/20/2020 Administered Pfizer COVID-19,mRNA, LNP-S, PF, 30mcg/0.3mL dose Unknown 08/11/2020 Administered Pfizer COVID-19,mRNA, LNP-S, PF, 30mcg/0.3mL dose IM Intramuscular 02/21/2021 Administered Moderna COVID-19 mRNA LNP-S PF Unknown 08/08/2021 Administered Moderna COVID-19 mRNA LNP-S PF IM Intramuscular 02/09/2023 Administered Moderna COVID-19 mRNA LNP-S PF IM Intramuscular 02/19/2024 Administered Moderna Bivalent Unknown 02/08/2022 Administered Influenza, Fluzone HD 65+ Unknown 01/30/2017 Administer ed Influenza, Fluzone HD 65+ IM Intramuscular 02/04/2018 Admi nistered Influenza, Fluzone HD 65+ IM Intramuscular 01/24/2020 Admi nistered Influenza, Fluzone HD 65+ IM Intramuscular 12/31/2020 Admi nistered Influenza, Fluzone HD 65+ IM Intramuscular 02/09/2022 Admi nistered Influenza, Fluzone HD 65+ IM Intramuscular 01/19/2023 Admi nistered Influenza, Fluzone HD 65+ IM Intramuscular 02/19/2024 Admi nistered Influenza Vaccine[158] Unknown 02/18/2019 Administered Influenza IM Intramuscular 03/11/2009 Administered Influenza IM Intramuscular 04/21/2010 Administered Influenza Unknown 01/05/2011 Administered Influenza Unknown 02/06/2012 Administered Influenza Unknown 01/05/2015 Administered FLU- FLUVIRIN, PRE-FILLED SYRINGE 0.5 ml Unknown 01/23/2013 Administered FLU- FLUVIRIN, PRE-FILLED SYRINGE 0.5 ml Unknown 01/07/2014 Administered SOCIAL HISTORY Tobacco Use: Social History Observation [...] e. 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) Active confirmed Atheroscle rotic heart disease of muscogee coronary artery without angina pectoris (016359282059783 ) Problem Functional dyspepsia (K30) Active confirmed Functional dyspepsia (2487593) Problem Macrocytosis (D75.89) Active confirmed 895488300 Problem Family history of GI malignancy (Z80.0) Active confirmed 074803135 Problem Low vitamin D level (E55.9) Active confirmed Vitamin D deficiency (65055590) Problem Postconcussive syndrome (F07.81) Active confirmed 27960582 Problem Enlarged prostate wi th lower urinary tract symptoms (LUTS) (N40.1) Active confirmed 199053326 Problem Memory problem (R41.3) Active confirmed 842308127 Problem Pure hypercholesterolemia (E78.00) Active confirmed 048051232 Problem Hearing loss, unspecified hearing loss type, unspecified laterality (H91.90) Active confirmed 18264864 Problem Hearing loss of left ear, unspecified hearing loss type (H91.92) Active confirmed 176781560 VITAL SIGNS Blood pressure diastolic 62 mm Hg 11/12/2024 Height 70 in 11/12/2024 Blood pressure systolic 124 mm Hg 11/12/2024 Weight 162 lbs 11/12/2024 BMI 23.24 kg/m2 11/12/2024 Encounters Encounter Location Date Provider Diagnosis [address] [address] 03/18/2024 [place] [id number] 03[place]20[place]2024 [place] [id number] 04/22[place]2024 [place] [id number] 04/22/2024 MAR[place]H [place]GU[place] [id number] 04/23/2024 [facility] [place] [id number] 04/23/2024 [facility] [place] [id number] 04/24/2024 [place] [id number] 05/13/2024 MAR[facility] [place] [id number] 05/15/2024 MARIAH CLAU Medicare annual well ness visit, subsequent Z00.[address] [address] 05/15/2024 MARIAH OLGUIN Major depressive dis order, single episode, unspecified F32.9 ; Pure hypercholesterolemia E78.00 ; Postconcussive syndrome F07.81 and Impacted cerumen, left ear H61.22 [place] [id number] 09/30/2024 MARIAH OLGUIN Insect bite (nonveno mous) of abdominal wall, initial encounter S30.861A and Bitten or stung by nonvenomous insect and other nonvenomous arthropods, initial encounter W57.XXXA [address] [place] [address] 10/02/[address] [address] 11/05/[address] [address] 11/05/[address] [address] 11/06/2024 [place] [id number] 11/11/[address] [address] 11/12/2024 [facility] Atherosclerotic hear t disease of muscogee coronary artery without angina pectoris I25.10 ; Major depressive disorder, single episode, unspecified F32.9 ; Pure hypercholesterolemia E78.00 ; Postconcussive syndrome F07.81 ; Low vitamin D level E55.9 and Medication management Z79.899 [place] [id number] 12/25/2024 [place] [id number] 01/03/2025 [place] [id number] 01/07/2025 [facility]ESS[facility] Encounter Date Diagnosis Assessment Notes Treatment Notes Treatment Clinical Notes Section Notes 09/30/2024 Insect bite (nonvenomous) of abdominal wall, initial encounter (ICD-10 - S30.861A) 11/12/2024 Atherosclerotic hear t disease of muscogee coronary artery without angina pectoris (ICD-10 - I25.10) Patient had some angina last week. He is advised to call his court administrator immediately for follow-up. Continue present management. Follow-up [...] CERVICAL min 4 views -SMA 03/2020 AST (SGOT)-286214 05/12/2025 Vitamin D25-314276 05/12/2025 ALT (SGPT)-138486 05/12/2025 Vitamin D, 24-Pinwuzm-522512 05/12/2025 Lipid Panel-063797 05/12/2025 BMP8+eGFR-304562 05/12/2025 Next Appt Details Provider Name:MIGDALIA Wright, 06/24/2025 08:30:00 AM, [address] [place] [address], [phone], Provider Name:MARIAH HARDY ERG, 06/24/2025 09:00:00 AM, [address] [place] [address], [phone], Insurance Providers Payer Name Payer Address Payer Phone Subscriber Number Group Number Insured Name Patient Relationship to Insured Coverage Start Date Coverage End Date MEDICARE [employer] [address] [facility] [place] [address] [phone] [id number] RONY DE PZA Self - patient is the insured 5 [employer]UE [employer]OSS [address] [address] [address] [place] [address] [phone] [id number] RONY DE PAZ Self - patient is the insured MEDICAL (GENERAL) HISTORY Medical History History ICD Code Anemia-Hgb12.7,MCV86,%ironsa t18-05/14-Iron def///Father colon polyps/Cancer--,PA----obujqcch60(05/14)//TTG nl 07/12/Hgb3/08nl////EGD4/21/08 SBBX nl(SIBx-nl,,COlon 08/26/07-mod sigm tics-Iron def anemia unclear etiology- REc path=Nl Duod, RTo4 mo c Hgb 1 week before,IRon,VitC colon 2012 with diverticulosis//Colon04/23/18-TIcs right and left-Rec fiber,Micup1ehzGosy R shoulder tendonitis Elevated ALT/AST depression/anxiety dyspepsia [...]
--- OUTSIDE RECORDS SUMMARY | 2025-02-18 19:30 | XMS_ITS | Clinical Summary ---
Author Organization [facility] Address [address] [place] [address] Care Team Providers Care Landscaping Supervisor Name Role Phone Unavailable Primary Care Provider [...] 18 yrs or above (or HM Modifier)([facility]) 10/21/1967 Hepatitis C Virus Infection in Adolescents and Adults: Screening (or Modifier) ([facility]) 10/21/1967 SDOH Screening Reminder: Jessica lyles for all adults ([facility]) 10/21/1967 Tobacco Smoking Cessation: i n Adults excluding Women: Behavioral and Pharmacotherapy Interventions ([facility]) 10/21/1967 DTaP/Tdap/Td Vaccines ([facility]) (1 - Tdap) 1968 Colorectal Cancer Screening 45 -75 Yrs (or HM Modifier ) 1994 Colorectal Cancer: FLEXIBLE SIGMOIDOSCOPY Screening every 5 yrs 1994 Colorectal Cancer: Fecal Imm unochemical Test (FIT) Annually [facility] 1994 Colorectal Cancer: High-sens itivity gFOBT Screening Annually [facility] 1994 Colorectal Cancer: Stool Col oguard Screening every 3 yrs 1994 Colorectal Cancer:CT Colonography Screening every 5 yr s 1994 Pneumococcal Vaccination Scr eening: Patients 50+ yrs of age ([facility]) (1 of 1 - PCV) 10/21/1999 Zoster/Shingles Vaccine Seri es Screening: Adults aged 18+ yrs (or HM Modifiers)([facility]) (1 of 2) 10/21/1999 RSV Vaccines (1 - 1-dose 75+ series) 2024 Flu Vaccination: Ages 65+: Y early High Dose Recommended (or Modifier)([facility]) 12/05/2024 COVID-19 Vaccine Screening: Initial Series and Booster Status ([facility]) ( - 2023- season) 2025 [employer] Not on file [place] [address] [place] [address] MEDICARE Member Subscriber Plan / Payer (Ef fective 2020-Present) Name:Justin Thakkar Relation to Subscriber:Self Name:Justin Thakkar Payer ID:Not on file Group ID:[id number] Type:Not on file Address: [facility] [address] [place] [address]
--- OUTSIDE RECORDS SUMMARY | 2025-02-18 19:30 | XMS_ITS | Clinical Summary ---
Author Organization [facility] Address [address] [place] [address] Phone Care Team Providers Care Cloud Operations Engineer Name Role Phone Julia Levin MD Primary Care Provider [phone] Social History Tobacco Use Types Packs/Day Years [...] [place] PPO BLUE REPLACEMENT [facility] MEDICARE PPO BLUE [place] [address] [place] [address] MEDICARE PPO BLUE REPLACEMENT Care Teams Cloud Operations Engineer Relationship Specialty Start Date End Date Julia Levin MD [address] [place] [id number] PCP - General Family Medicine 03/25/20 Additional Source Comments The information contained in this document represents components of the legal health record. It is not the complete legal health record.[facility]
== END 2025-02-18 16:37 | disposition home or self-care (01) ==
LOC: HO.MRI 16:36
PROVIDERS: PCP Family Medicine; Visit Provider Registered Nurse
DX: G31.84 Mild cognitive impairment of uncertain or unknown etiology (principal)
CPT/HCPCS: 70551

== ENCOUNTER → 2025-02-18 16:44 | Outpatient (BNV) | payer MEDICARE, SELFPAY | PROVIDERS: PCP Family Medicine; Visit Provider Radiology Diagnostic Radiology | DX: G31.09 Other frontotemporal neurocognitive disorder (principal) | CPT/HCPCS: 70551 ==

== ENCOUNTER 2025-04-20 10:29 | Outpatient (AMB) | payer MEDICARE, SELFPAY ==
--- NOTE | 2025-04-20 10:40 | MHC.OFFVIS ---
Vital Signs 04/20/25 10:44 Height 5 ft 10 in Weight 159 lb BMI 22.8 BP 118/68 Blood Pressure Location Rt brachial Position Sitting Respiration 16 Pulse 96 Pulse Source Pulse Oximeter Pulse Oximetry (%) 98 Oxygen Delivery Method Room Air Intake Visit Reasons: petscan follow up Head Charrer Required: No Allergies No Known Allergies (No Known Allergies*) Allergy (Verified 04/20/25 10:45) HPI Comments Details: Justin is a 74-year-old male patient presenting to the clinic today for a follow up appointment after a PET scan. He originally came to the clinic for reports of forgetfulness during his day-to-day activities such as misplacing objects around the house such as his glasses auras phone and difficulty with focusing on tasks. Sleep was okay getting 8 or more hours per night. Moods were stable on venlafaxine. He was driving locally without any issues though he had made some mistakes paying bills and his is helping to manage finances more than before. He has not had any falls or difficulty with imbalance. He was taking memantine 10 mg once a day. His workup has so far included a B12 level, TSH, and MRI of the brain as well as cognitive scoring. He eventually obtain his PET scan which is here today for review. Results of workup: Labs 01/20/2025: Vitamin B12 916, TSH 4.69 Dixon score 01/20/2025: MRI of the brain 02/18/2025 IMPRESSION: No acute brain abnormality. Asymmetric volume loss right hip hippocampi without signal abnormality. Mild bifrontal temporal lobe atrophy. Nonspecific T2 FLAIR signal foci, bifrontal lobes. 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 Centiloid score: 110.52 [facility] Medical History (Updated 04/20/25 @ 13:01 by Chanda Glover CNP) MCI (mild cognitive impairment) Tension headache Migraine variant Paresthesia CAD (coronary artery disease) Review of Systems Const All systems reviewed & are unremarkable except as noted in HPI and below Physical Exam Exam Exam: 01/20/2025 MOCA: MOCA total: Executive:4/5 Namin/3 Attention:6/6 Language:3/3 Abstraction:2/2 Delayed recall:2/5 Orientation:6 Vital Signs: Last Vital Signs Pulse 96 04/20/25 10:44 Resp 16 04/20/25 10:44 BP 118/68 04/20/25 10:44 Pulse Ox 98 04/20/25 10:44 Oxygen Delivery Method Room Air 04/20/25 10:44 BMI result Body Mass Index 22.8 Const General: cooperative, healthy appearing, comfortable and no acute distress Orientation/consciousness: oriented to person, oriented to place and oriented to time (Vague on time. Wrong month given) Neuro General: oriented to person, oriented to place and oriented to time (Vague on time. Wrong month given) Cranial nerves: Yes CN's II-XII intact bilaterally Gait exam (Neuro): Normal gait present Assessment & Plan Assessment & Plan (1) MCI (mild cognitive impairment): Code(s): G31.84 - Mild cognitive impairment of uncertain or unknown etiology Category: Medical (2) Alzheimer's dementia: Code(s): G30.9 - Alzheimer's disease, unspecified; F02.80 - Dementia in other diseases classified elsewhere, unspecified severity, without behavioral disturbance, psychotic disturbance, mood disturbance, and anxiety Category: Medical Plan Justin is a 74-year-old male patient presenting to the clinic today for a follow up appointment after a PET scan. With his present today, we reviewed all of his testing including the PET scan. I reviewed options including the more novel Alzheimer's medications such as Kisunla and Leqembi as well as addition of donepezil and modifying lifestyle changes. We reviewed numerous different scenarios and discussed the mechanism of action for different medications that can be used to either support memory or to actually stop the amyloid plaque buildup. I reviewed risks and benefits and encouraged the patient in his to do some research on their own with reliable sources. It was explained to him that there is a specific window of time that he will be eligible for the newer medications should he decide to proceed in that direction (though this timeline is variable for each individual). The plan at the time of his next visit will be to repeat his Dixon score and to discuss any decisions that they perhaps have made. In the meantime, he would like to try going back on a low dose of donepezil though this did cause vivid dreams in the past. I did explain that he can take it during the day and see if this helps. -start donepezil 5 mg daily -continue memantine 10 mg twice daily -repeat Dixon score at next visit -discuss at next visit if he would like to proceed with any other options Medications: New donepezil 5 mg PO DAILY 30 tabs 5RF 30 days Coding Level of Care Code Est Pt Level 4 (21816) Diagnoses MCI (mild cognitive impairment) G31.84 Alzheimer's dementia G30.9; F02.80
[2025-04-20 10:44] VITALS: BP 118/68; PULSE 96; RESP 16; O2SAT 98; BMI 22.8
== END 2025-04-20 11:43 | disposition home or self-care (01) ==
LOC: HO.HSM 10:30
PROVIDERS: PCP Family Medicine; Visit Provider Nurse Practitioner
DX: G31.84 Mild cognitive impairment of uncertain or unknown etiology (principal); G30.9 Alzheimer's disease, unspecified; F02.80 Dementia in other diseases classified elsewhere, unspecified severity, without behavioral disturbance, psychotic disturbance, mood disturbance, and anxiety
CPT/HCPCS: 99214

== ENCOUNTER → 2025-04-20 10:29 | Outpatient (BNVA) | payer MEDICARE, SELFPAY | PROVIDERS: PCP Family Medicine; Visit Provider Nurse Practitioner | DX: G30.9 Alzheimer's disease, unspecified (principal); F02.80 Dementia in other diseases classified elsewhere, unspecified severity, without behavioral disturbance, psychotic disturbance, mood disturbance, and anxiety | CPT/HCPCS: 99212 ==